=== PATIENT | male | born 1985 | race Caucasian/White ===

== ENCOUNTER → 2018-08-26 | Outpatient (CLI) | payer SELFPAY ==
[2018-08-26 16:57] LABS: Hemoglobin A1C 4.7 % (4.0-6.0)
[2018-08-26 17:58] LABS: LDL Cholesterol,Calculated 93.2 mg/dL (0.0-131.0); Lithium 0.3 mmol/L (1.0-1.2); VLDL Calculation 30.8 mg/dL (5.00-40.00)
== END | disposition home or self-care (01) ==
LOC: LABWHC1 10:32
PROVIDERS: ATTEND Psychiatry & Neurology Psychiatry
DX: Z51.81 Encounter for therapeutic drug level monitoring (principal); Z79.899 Other long term (current) drug therapy
CPT/HCPCS: 36415; 80061; 80178; 82565; 82947; 83036; 84439; 84443; 84520

== ENCOUNTER → 2018-09-27 | Outpatient (CLI) | payer OTHER | END | disposition home or self-care (01) | LOC: LABWHC1 10:52 | PROVIDERS: ATTEND Psychiatry & Neurology Psychiatry | DX: Z51.81 Encounter for therapeutic drug level monitoring (principal); Z79.899 Other long term (current) drug therapy | CPT/HCPCS: 36415; 80178 ==

== ENCOUNTER 2018-11-15 12:46 | Emergency (ER) | payer OTHER ==
[2018-11-15 13:43] VITALS: BP 105/73; PULSE 78; RESP 18; TEMP 98.7
[2018-11-15] MEDS ORDERED: KETOROLAC 60 MG/2 ML VIAL IM STA (14:23)
--- NOTE | 2018-11-15 14:25 | ED ---
Fall HPI - General Chief Complaint: Fall Stated Complaint: fall/8 stairs-2 days ago Time Seen by Provider: 11/15/18 14:16 Source: patient Mode of arrival: ambulatory - History of Present Illness Initial Comments: Patient is a 32-year-old male presenting to the emergency department complaining of back pain after falling off some stairs 2 days ago. Patient states he was trying to carry out a mattress up the stairs from a basement when he fell off the side landing onto his back. Patient states he fell onto cement alyssa and some poles that were on the ground as well. Patient states he's been trying to take Motrin for the pain but today it just got worse. He describes the pain mostly in the thoracic area. Patient denies shortness of breath or difficulty breathing. Patient also denies hitting his head and LOC. Patient has no other complaints at this time. - Related Data Previous Rx's Medication Instructions Recorded ARIPiprazole [Abilify] 15 mg PO DAILY 30 Days tab 04/04/14 Albuterol Inhaler [Ventolin Hfa 2 puff INHALATION RT-QID PRN 14 04/04/14 Inhaler] Days puff hydrOXYzine PAMOATE [Vistaril] 50 mg PO TID 30 Days cap 04/04/14 traZODone HCL [Desyrel] 100 mg PO HS 30 Days tab 04/04/14 Allergies Allergy/AdvReac Type Severity Reaction Status Date / Time Penicillins Allergy Intermediate Rash/Hives Verified 11/15/18 13:43 quetiapine fumarate AdvReac Severe Unknown Verified 11/15/18 13:43 [From Seroquel] [place] And Derivatives AdvReac Intermediate Rash/Hives Verified 11/15/18 13:43 strawberry [[place]] AdvReac Intermediate Rash/Hives Verified 11/15/18 13:43 Review of Systems ROS Statement: Those systems with pertinent positive or pertinent negative responses have been documented in the HPI. ROS Other: All systems not noted in ROS Statement are negative. Past Medical History Past Medical History: Asthma, GERD/Reflux Additional Past Medical History / Comment(s): Pt. currently has Dermatitis/rash from allergic reaction to a generic Tide pod laundry soap. History of Any Multi-Drug Resistant Organisms: None Reported Past Surgical History: No Surgical Hx Reported Past Anesthesia/Blood Transfusion Reactions: No Reported Reaction Past Psychological History: Anxiety, Bipolar Smoking Status: Current every day smoker Past Alcohol Use History: None Reported, Occasional Past Drug Use History: None Reported - Past Family History Mother Family Medical History: Diabetes Mellitus, Musculoskeletal Disorder, Renal Disease Additional Family Medical History / Comment(s): Stage III Renal Failure and Arthritis and Peripheral Neuropathy. Sister(s) Family Medical History: Seizure Disorder Additional Family Medical History / Comment(s): [facility]I and now has Seizure D.O. General Exam - General Exam Comments Initial Comments: GENERAL: Well-appearing, well-nourished and in no acute distress. HEAD: Atraumatic, normocephalic. EYES: Pupils equal round and reactive to light, extraocular movements intact, sclera anicteric, conjunctiva are normal. ENT: TMs normal, nares patent, oropharynx clear without exudates. Moist mucous membranes. NECK: Normal range of motion, supple without lymphadenopathy or JVD. LUNGS: Breath sounds clear to auscultation bilaterally and equal. No wheezes rales or rhonchi. HEART: Regular rate and rhythm without murmurs, rubs or gallops. ABDOMEN: Soft, nontender, normoactive bowel sounds. No guarding, no rebound. No masses appreciated. : Deferred EXTREMITIES: Pain with palpation of the lower thoracic spine and paraspinals. Bruising and abrasions along the thoracic area and lumbar area. NEUROLOGICAL: Cranial nerves II through XII grossly intact. Normal speech, normal gait. PSYCH: Normal mood, normal affect. SKIN: Warm, Dry, normal turgor, no rashes or lesions noted. Limitations: no limitations Course Vital Signs 11/15/18 13:39 Temperature 98.7 F Pulse Rate 78 Respiratory 18 Rate Blood Pressure 105/73 O2 Sat by Pulse 97 Oximetry Medical Decision Making - Medical Decision Making Patient is a 32-year-old male complaining of thoracic back pain after falling onto his back 2 days ago. Patient denies any other trauma. X-rays of the thoracic area and ribs were taken, no acute fractures are seen. Patient will be discharged home. Disposition Clinical Impression: Thoracic back pain Disposition: HOME SELF-CARE Condition: Stable Instructions (If sedation given, give patient instructions): Back Pain (ED) Additional Instructions: Please return to the Emergency Department if symptoms worsen or any other concerns. Is patient prescribed a controlled substance at d/c from ED?: No Referrals: [facility] [Primary Care Provider] - 1-2 days
--- NOTE | 2018-11-15 14:57 | XR ---
EXAMINATION TYPE: Bilateral rib series, 8 views DATE OF EXAM: 11/15/2018 COMPARISON: 03/28/2008 HISTORY: 32-year-old male with pain FINDINGS: No pleural effusion or pneumothorax seen on either side. No displaced rib fracture seen on either martha e. IMPRESSION: No displaced rib fractures seen on either side.
--- NOTE | 2018-11-15 14:58 | XR ---
EXAMINATION TYPE: XR thoracic spine complete DATE OF EXAM: 11/15/2018 Comparison: None Clinical History: 32-year-old male with Pain Findings: 12 rib bearing thoracic vertebral bodies. All pedicles are visualized. Vertebral body heights are jad ntained and alignment is preserved. Impression: No vertebral compression collapse or malalignment.
== END 2018-11-15 15:17 | disposition home or self-care (01) ==
LOC: EC 12:46
DX: S20.222A Contusion of left back wall of thorax, initial encounter (principal); S20.221A Contusion of right back wall of thorax, initial encounter; S30.0XXA Contusion of lower back and pelvis, initial encounter; J45.909 Unspecified asthma, uncomplicated; F17.200 Nicotine dependence, unspecified, uncomplicated; Z88.0 Allergy status to penicillin; Z88.8 Allergy status to other drugs, medicaments and biological substances; Z91.018 Allergy to other foods; W10.9XXA Fall (on) (from) unspecified stairs and steps, initial encounter; Y93.89 Activity, other specified
CPT/HCPCS: 71110; 72072; 99283; 96372; J1885

== ENCOUNTER → 2019-11-23 | Day surgery (SDC) | payer OTHER ==
[2019-11-21 18:27] VITALS: BMI 24.3
[~2019-11-23] MED LIST: ACETAMINOPHEN TAB 500 MG TAB PO ONE; BUPIVACAIN-EPI 0.25%-1:200,000 30 ML VIAL SQ ONE; DEXAMETHASONE SOD PHOSPHATE 10 MG/ML 1 ML VIAL IV ONE; GLYCOPYRROLATE 0.2 MG/ML 2 ML VIAL ONE; HEPARIN SODIUM,PORCINE 5,000 UNIT/ML 1 ML VIAL SQ ONE; HYDROmorphone (PF) 1 MG/ML ONE; KETOROLAC 30 MG/ML 1 ML VIAL IVP ONE; LACTATED RINGERS 1,000 ML IV ONE; LACTATED RINGERS 1,000 ML IV SCH; LIDOCAINE 1% (10MG/ML) FOR IV START INTRADERMA ONE; LIDOCAINE 1% INJ 10MG/ML (20 ML MDV) ONE; MIDAZOLAM 2 MG/2 ML VIAL ONE; NEOSTIGMINE 1 MG/ML 10 ML VIAL ONE; ONDANSETRON 4 MG/2 ML VIAL IVP ONE; PROPOFOL 10 MG/ML 20 ML VIAL IV ONE; ROCURONIUM BROMIDE 10 MG/ML 5 ML VIAL IV ONE; SCOPOLAMINE 1.5MG/72HR PATCH TRANSDERM ONE; SUCCINYLCHOLINE CHLORIDE 100 MG/5 ML SYR IV ONE; fentaNYL (PF) 50 MCG/ML 2 ML AMP IV PRN; fentaNYL (PF) 50 MCG/ML 2 ML AMP ONE
[2019-11-23 09:02] VITALS: TEMP 96.8
--- NOTE | 2019-11-23 09:42 | P.GSHP ---
History of Present Illness H&P Date: 11/23/19 Chief Complaint: Right upper quadrant pain Is a 33-year-old male who presents today for laparoscopically cholecystectomy. Patient's had complaints of right quadrant pain. He is worked up found have evidence of cholecystitis. Past Medical History Past Medical History: Asthma, GERD/Reflux Additional Past Medical History / Comment(s): Pt. currently has Dermatitis/rash from allergic reaction to a generic Tide pod laundry soap. History of Any Multi-Drug Resistant Organisms: None Reported Past Surgical History: No Surgical Hx Reported Past Anesthesia/Blood Transfusion Reactions: No Reported Reaction Smoking Status: Current every day smoker - Past Family History Mother Family Medical History: Diabetes Mellitus, Musculoskeletal Disorder, Renal Disease Additional Family Medical History / Comment(s): Stage III Renal Failure and Arthritis and Peripheral Neuropathy. Sister(s) Family Medical History: Seizure Disorder Additional Family Medical History / Comment(s): [facility]I and now has Seizure D.O. Medications and Allergies Home Medications Medication Instructions Recorded Confirmed Type Albuterol Inhaler (Mhu) [Ventolin 2 puff INHALATION RT-QID PRN 14 04/04/14 11/23/19 Rx Hfa Inhaler (Mhu)] Days puff traZODone HCL [Desyrel] 100 mg PO HS 30 Days tab 04/04/14 11/23/19 Rx Omeprazole [PriLOSEC] 20 mg PO AC-BRKFST 11/21/19 11/23/19 History rOPINIRole HCL [Requip] 0.25 mg PO HS 11/21/19 11/23/19 History traMADol HCL [Ultram] 50 mg PO Q6HR PRN 11/21/19 11/23/19 History Allergies Allergy/AdvReac Type Severity Reaction Status Date / Time Penicillins Allergy Intermediate Rash/Hives Verified 11/23/19 08:59 quetiapine fumarate AdvReac Severe Unknown Verified 11/23/19 08:59 [From Seroquel] [place] And Derivatives AdvReac Intermediate Rash/Hives Verified 11/23/19 08:59 strawberry [[place]] AdvReac Intermediate Rash/Hives Verified 11/23/19 08:59 Surgical - Exam Vital Signs Temp Pulse Resp BP Pulse Ox 96.8 F L 66 17 115/68 97 11/23/19 09:01 11/23/19 09:01 11/23/19 09:01 11/23/19 09:01 11/23/19 09:01 - General well developed, well nourished, no distress - Eyes PERRL, normal ocular movement - ENT normal pinna - Neck no masses - Respiratory normal expansion - Cardiovascular Rhythm: regular - Abdomen Abdomen: soft, non tender Assessment and Plan Assessment: Chronic cholecystitis. We'll perform laparoscopic cholecystectomy
--- NOTE | 2019-11-23 11:01 | P.OP ---
Date of Procedure: 11/23/19 Preoperative Diagnosis: Cholecystitis Postoperative Diagnosis: Cholecystitis Procedure(s) Performed: Laparoscopic cholecystectomy Anesthesia: SAQIB Surgeon: Alber Bearden Estimated Blood Loss (ml): 5 Pathology: other (Gallbladder) Condition: stable Disposition: PACU Description of Procedure: The patient was placed on the operating table. The patient received a general endotracheal tube anesthesia. The patients abdomen was prepped and draped in the usual sterile fashion. Through an infraumbilical stab incision, the fascia of the anterior abdominal wall was grasped with a pair of Kochers and then the Veress needle was placed in the peritoneal cavity. Position of the Veress needle was confirmed with positive drop test. The abdomen was then insufflated. After adequate insufflation, the 10 mm trocar was placed in the peritoneal cavity. Following this the laparoscope was placed in the peritoneal cavity. The patient was placed in the head-up, right side up position and then a 5 mm trocar was placed in the right lateral and right subcostal position under direct visualization. A 8 mm trocar was placed in the epigastric position. The gallbladder was grasped in the fundus and infundibulum. Traction on the gallbladder was placed in the lateral and the cephalad positions. The triangle of Calot was visualized.. The cystic duct was bluntly dissected until the union of the cystic duct and common bile duct was seen. A critical view of safety was achieved. The cystic duct was then divided and sealed with the Harmonic scissors. A PDS Endoloop was then placed throughout the cystic duct stump. The cystic artery divided and sealed with the Harmonic scissors. The gallbladder was then removed from the liver bed using Harmonic scissors. The gallbladder was then extracted through the epigastric port site. Operative field was checked for any bleeding spots and Harmonic scissors was used to coagulate the liver bed. The abdomen was irrigated. The trocars were removed. The skin was closed using interrupted 3-0 Vicryl suture. Dermabond dressing were applied. The patient tolerated the procedure well.
[2019-11-23 11:06] VITALS: RESP 18
[2019-11-23] MEDS: HYDROmorphone 0.5 MG/0.5 ML SYRINGE IVP PRN ×2 (11:07→11:13)
[2019-11-23 12:44] VITALS: BP 123/79; PULSE 68
== END ==
LOC: OR 08:44
PROVIDERS: ATTEND Surgery
DX: K81.1 Chronic cholecystitis (principal); J45.909 Unspecified asthma, uncomplicated; F17.210 Nicotine dependence, cigarettes, uncomplicated; K21.9 Gastro-esophageal reflux disease without esophagitis; F41.9 Anxiety disorder, unspecified; F32.9 Major depressive disorder, single episode, unspecified; Z88.0 Allergy status to penicillin; Z88.8 Allergy status to other drugs, medicaments and biological substances; Z91.018 Allergy to other foods; Z79.899 Other long term (current) drug therapy; Z83.3 Family history of diabetes mellitus; Z82.61 Family history of arthritis; Z84.1 Family history of disorders of kidney and ureter; Z82.0 Family history of epilepsy and other diseases of the nervous system
CPT/HCPCS: 88304; 47562; J2250; J1644; J1100; J2710; J0690; J2405; J2001; J3010; J1885; J1170 ×2; J0330; J2704

== ENCOUNTER 2019-12-25 03:34 | Emergency (ER) | payer OTHER ==
[2019-12-25 03:42] VITALS: TEMP 98
--- NOTE | 2019-12-25 03:42 | ED ---
General Adult HPI <Lamont Steinre - Last Filed: 12/25/19 06:33> <SdJonn - Last Filed: 12/25/19 12:25> - General Stated complaint: ETOH Time Seen by Provider: 12/25/19 03:36 - History of Present Illness Initial comments: Dictation was produced using [employer] dictation software. please excuse any grammatical, word or spelling errors. This patient was cared for during a federal and state declared state of emergency secondary to Covid 19 Chief Complaint: 34-year-old male with past medical history of bipolar disease presents with agitation History of Present Illness: 34-year-old male he is has past medical history bipolar disease. Patient use of a psychiatrist however he weaned himself off his psychiatric medications. Patient was drinking heavily this evening. He was having his 15 year anniversary with his . Patient states that he got into a confrontation with his . He was accused of having people over when he really didn't. He suicidal homicidal ideation. Patient states he is here because he just wants to talk to somebody. Denies any visual auditory hallucinations. Patient has no medical complaints. The ROS documented in this emergency department record has been reviewed and c onfirmed by me. Those systems with pertinent positive or negative responses have been documented in the HPI. All other systems are other negative and/or noncontributory. PHYSICAL EXAM: General Impression: Alert and oriented x3, not in acute distress, inebriated HEENT: Normocephalic atraumatic, extra-ocular movements intact, pupils equal and reactive to light bilaterally, mucous membranes moist. Cardiovascular: Heart regular rate and rhythm Chest: Able to complete full sentences, no retractions, no tachypnea Abdomen: abdomen soft, non-tender, non-distended, no organomegaly Musculoskeletal: Pulses present and equal in all extremities, no peripheral edema Motor: no focal deficits noted Neurological: CN II-XII grossly intact, no focal motor or sensory deficits noted Skin: Intact with no visualized rashes Psych: Normal affect and mood ED course: 34 y Old male presents with alcohol intoxication and defecation with his significant other. Vital signs upon arrival are within acceptable limits. positive breath alcohol test. Patient pending clinical sobriety for EPS evaluation. Patient care signed out to oncoming physician for follow-up of EPS recommendations. (Lamont Steiner) - Related Data Home Medications Medication Instructions Recorded Confirmed Omeprazole [PriLOSEC] 20 mg PO AC-BRKFST 11/21/19 12/25/19 rOPINIRole HCL [Requip] 0.25 mg PO HS 11/21/19 12/25/19 Albuterol Sulfate [Ventolin HFA] 1 - 2 puff INHALATION RT-QID PRN 12/25/19 12/25/19 Previous Rx's Medication Instructions Recorded traZODone HCL [Desyrel] 100 mg PO HS 30 Days tab 04/04/14 Allergies Allergy/AdvReac Type Severity Reaction Status Date / Time [place] And Derivatives Allergy Intermediate Rash/Hives Verified 12/25/19 09:49 Penicillins Allergy Intermediate Rash/Hives Verified 12/25/19 09:49 strawberry [[place]] Allergy Intermediate Rash/Hives Verified 12/25/19 09:49 quetiapine fumarate AdvReac Severe Paralysis, Verified 12/25/19 09:49 [From Seroquel] unable to move. Review of Systems ROS Other: All systems not noted in ROS Statement are negative. <Lamont Steiner - Last Filed: 12/25/19 06:33> ROS Other: All systems not noted in ROS Statement are negative. <Jonn Beaver - Last Filed: 12/25/19 12:25> ROS Statement: Those systems with pertinent positive or pertinent negative responses have been documented in the HPI. Past Medical History Past Medical History: Asthma, GERD/Reflux Additional Past Medical History / Comment(s): Pt. currently has Dermatitis/rash from allergic reaction to a generic Tide pod laundry soap. History of Any Multi-Drug Resistant Organisms: None Reported Past Surgical History: No Surgical Hx Reported Past Anesthesia/Blood Transfusion Reactions: No Reported Reaction Past Psychological History: Anxiety, Bipolar Past Alcohol Use History: None Reported Additional Past Alcohol Use History / Comment(s): Smoking since age 16, 1/2 ppd Past Drug Use History: None Reported - Past Family History Mother Family Medical History: Diabetes Mellitus, Musculoskeletal Disorder, Renal Di sease Additional Family Medical History / Comment(s): Stage III Renal Failure and Arthritis and Peripheral Neuropathy. Sister(s) Family Medical History: Seizure Disorder Additional Family Medical History / Comment(s): [facility]I and now has Seizure D.O. <Lamont Steiner - Last Filed: 12/25/19 06:33> Course <Jonn Beaver - Last Filed: 12/25/19 12:25> Vital Signs 12/25/19 03:36 Temperature 98 F Pulse Rate 89 Respiratory 20 Rate Blood Pressure 126/91 O2 Sat by Pulse 96 Oximetry - Reevaluation(s) Reevaluation #1: 12/25/19 12:24 The patient was endorsed me pending psychiatric evaluation after sobriety obtained. It was evaluated he currently is not suicidal or homicidal he will be discharged only care plan. He is in agreement with this. (Jonn Beaver) Disposition <Lamont Steiner - Last Filed: 12/25/19 06:33> Is patient prescribed a controlled substance at d/c from ED?: No <Jonn Beaver - Last Filed: 12/25/19 12:25> Clinical Impression: Alcohol intoxication, Adjustment disorder Disposition: HOME SELF-CARE Condition: Good Instructions (If sedation given, give patient instructions): Alcohol Intoxication (ED), Mood Disorders (ED) Referrals: Rodney Lara MD [Primary Care Provider] - 1-2 days
[2019-12-25 15:00] VITALS: BP 126/92; PULSE 88; RESP 18
== END 2019-12-25 13:06 | disposition home or self-care (01) ==
LOC: EC 03:34
DX: F10.129 Alcohol abuse with intoxication, unspecified (principal); F43.20 Adjustment disorder, unspecified; F31.9 Bipolar disorder, unspecified; J45.909 Unspecified asthma, uncomplicated; K21.9 Gastro-esophageal reflux disease without esophagitis; Z91.048 Other nonmedicinal substance allergy status; Z79.51 Long term (current) use of inhaled steroids; Z79.899 Other long term (current) drug therapy; Z88.0 Allergy status to penicillin; Z91.018 Allergy to other foods; Z88.8 Allergy status to other drugs, medicaments and biological substances
CPT/HCPCS: 82075; 99285

== ENCOUNTER 2020-02-29 04:07 | Emergency (ER) | payer OTHER ==
[2020-02-29 04:39] LABS: Amphetamine Screen,Urine Not Detected (NotDetected); Barbiturate Screen,Urine Not Detected (NotDetected); Benzodiazepines Screen,Urine Not Detected (NotDetected); Cocaine Screen,Urine Not Detected (NotDetected); Methadone Screen, Urine Not Detected (NotDetected); Opiate Screen,Urine Not Detected (NotDetected); Oxycodone Screen, Urine Not Detected (NotDetected); Phencyclidine Screen,Urine Not Detected (NotDetected); Tricyclic Antidepressant,Urine Not Detected (NotDetected); Urn Cannabinoid Scrn Not Detected (NotDetected)
--- NOTE | 2020-02-29 05:30 | ED ---
Psych HPI - General Source: patient Mode of arrival: ambulatory - History of Present Illness MD Complaint: suicidal ideation, feels depressed -: days(s) Associated Psychiatric Symptoms: depression History of same: Yes Quality: changing over time Improves With: none Worsens With: none Context: significant life stressor Associated Symptoms: denies other symptoms <Cam Parkinson - Last Filed: 02/29/20 05:27> <Pavan Dunaway - Last Filed: 02/29/20 10:15> - General Chief Complaint: Psychiatric Symptoms Stated Complaint: Mental Health Time Seen by Provider: 02/29/20 04:22 - History of Present Illness Initial Comments: This patient is 34-year-old man with history of previous psychiatric treatment f or depression who presents with complaint that his mood has been increasingly depressed over the past week or so. 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 In addition, the patient had 2 friends who of overdose at his wedding on his mood. Patient was previously treated by [facility] but has not been seen in quite some time. (Cam Parkinson) - Related Data Home Medications Medication Instructions Recorded Confirmed Omeprazole [PriLOSEC] 20 mg PO AC-BRKFST 11/21/19 02/29/20 rOPINIRole HCL [Requip] 0.25 mg PO 11/21/19 02/29/20 Albuterol Sulfate [Ventolin HFA] 1 - 2 puff INHALATION RT-QID PRN 12/25/19 02/29/20 traZODone HCL [Desyrel] 100 mg PO 02/29/20 02/29/20 Allergies Allergy/AdvReac Type Severity Reaction Status Date / Time [place] And Derivatives Allergy Intermediate Rash/Hives Verified 02/29/20 06:55 Penicillins Allergy Intermediate Rash/Hives Verified 02/29/20 06:55 strawberry [[place]] Allergy Intermediate Rash/Hives Verified 02/29/20 06:55 quetiapine fumarate AdvReac Severe Paralysis, Verified 02/29/20 06:55 [From Seroquel] unable to move. Review of Systems ROS Other: All systems not noted in ROS Statement are negative. Constitutional: Denies: fever, chills Respiratory: Denies: cough, dyspnea Cardiovascular: Denies: chest pain, palpitations Gastrointestinal: Denies: abdominal pain, vomiting, diarrhea Genitourinary: Denies: dysuria, hematuria Musculoskeletal: Denies: back pain Skin: Denies: rash Neurological: Denies: headache Psychiatric: Reports: depression, suicidal thoughts. Denies: auditory hallucinations, visual hallucinations, homicidal thoughts <Cam Parkinson - Last Filed: 02/29/20 05:27> ROS Other: All systems not noted in ROS Statement are negative. <Pavan Dunaway - Last Filed: 02/29/20 10:15> ROS Statement: Those systems with pertinent positive or pertinent negative responses have been documented in the HPI. Past Medical History Past Medical History: Asthma, GERD/Reflux Additional Past Medical History / Comment(s): Pt. currently has Dermatitis/rash from allergic reaction to a generic Tide pod laundry soap. History of Any Multi-Drug Resistant Organisms: None Reported Past Surgical History: No Surgical Hx Reported Past Anesthesia/Blood Transfusion Reactions: No Reported Reaction Past Psychological History: Anxiety, Bipolar Smoking Status: Current every day smoker Past Alcohol Use History: None Reported Past Drug Use History: None Reported - Past Family History Mother Family Medical History: Diabetes Mellitus, Musculoskeletal Disorder, Renal Disease Additional Family Medical History / Comment(s): Stage III Renal Failure and Arthritis and Peripheral Neuropathy. Sister(s) Family Medical History: Seizure Disorder Additional Family Medical History / Comment(s): CHI and now has Seizure D.O. <Cam Parkinson - Last Filed: 02/29/20 05:27> General Exam Limitations: no limitations General appearance: alert, in no apparent distress Head exam: Present: atraumatic, normocephalic Eye exam: Present: normal appearance. Absent: scleral icterus, conjunctival injection Respiratory exam: Present: normal lung sounds bilaterally. Absent: respiratory distress, wheezes, rales, rhonchi, stridor Cardiovascular Exam: Present: regular rate, normal rhythm, normal heart sounds. Absent: systolic murmur, diastolic murmur, rubs, gallop GI/Abdominal exam: Present: soft. Absent: distended, tenderness, guarding, rebound, rigid Neurological exam: Present: alert Psychiatric exam: Present: normal mood, suicidal ideation. Absent: agitated, anxious, flat affect, manic, homicidal ideation Skin exam: Present: warm, dry, intact, normal color. Absent: rash <Cam Parkinson - Last Filed: 02/29/20 05:27> Course Vital Signs 02/29/20 02/29/20 04:15 08:00 Temperature 98 F Pulse Rate 85 Respiratory 18 18 Rate Blood Pressure 113/79 O2 Sat by Pulse 98 Oximetry Medical Decision Making <Gilberto Dunawayophe - Last Filed: 02/29/20 10:15> - Medical Decision Making Mobile crisis unit came spoke with the patient and determined that the patient could be followed up as an outpatient. Patient agreed to safety plan and the safety plan was given to the patient prior to discharge. (Pavan Dunaway) - Lab Data Lab Results 02/29/20 Range/Units 04:22 Urine Opiates Screen Not Detected (NotDetected) Ur Oxycodone Screen Not Detected (NotDetected) Urine Methadone Screen Not Detected (NotDetected) Ur Propoxyphene Screen Not Detected (NotDetected) Ur Barbiturates Screen Not Detected (NotDetected) U Tricyclic Antidepress Not Detected (NotDetected) Ur Phencyclidine Scrn Not Detected (NotDetected) Ur Amphetamines Screen Not Detected (NotDetected) U Methamphetamines Scrn Not Detected (NotDetected) U Benzodiazepines Scrn Not Detected (NotDetected) Urine Cocaine Screen Not Detected (NotDetected) U Marijuana (THC) Screen Not Detected (NotDetected) Disposition <Cam Parkinson - Last Filed: 02/29/20 05:27> Is patient prescribed a controlled substance at d/c from ED?: No Time of Disposition: 10:15 <Pavan Dunaway - Last Filed: 02/29/20 10:15> Clinical Impression: Depression Disposition: HOME SELF-CARE Condition: Good Instructions (If sedation given, give patient instructions): Depression (ED) Referrals: Rodney Lara MD [Primary Care Provider] - 1-2 days
[2020-02-29 10:57] VITALS: BP 116/74; PULSE 88; RESP 20; TEMP 97.9
== END 2020-02-29 10:53 | disposition home or self-care (01) ==
LOC: EC 04:07
DX: F32.9 Major depressive disorder, single episode, unspecified (principal); F41.9 Anxiety disorder, unspecified; J45.909 Unspecified asthma, uncomplicated; K21.9 Gastro-esophageal reflux disease without esophagitis; F17.200 Nicotine dependence, unspecified, uncomplicated; Z79.899 Other long term (current) drug therapy; Z91.09 Other allergy status, other than to drugs and biological substances; Z88.0 Allergy status to penicillin; Z91.018 Allergy to other foods; Z88.8 Allergy status to other drugs, medicaments and biological substances
CPT/HCPCS: 80306; 82075; 99284

== ENCOUNTER 2020-10-19 04:41 | Emergency (ER) | payer OTHER ==
[2020-10-19] MEDS ORDERED: KETOROLAC 15 MG/ML 1 ML VIAL IVP STA (05:17)
--- NOTE | 2020-10-19 05:53 | ED ---
Extremity Problem HPI - General Chief complaint: Extremity Problem,Nontraumatic Stated complaint: Poss DVT Time Seen by Provider: 10/19/20 05:06 Source: patient, EMS Mode of arrival: EMS Limitations: no limitations - History of Present Illness Initial comments: is 34-year-old man who presents with right knee pain that started around 2 AM. Patient has Flexeril at home they tried taking and states that when that did not relieve things she felt he should be evaluated here. Patient states that he also felt like his leg was a little tingly and therefore was concerned about possibility of DVT. He does not have history of DVT but his mother does. There was no trauma. MD Complaint: joint pain -: hour(s) Location: right, knee History of Same: Yes Radiation: none Quality: aching Consistency: constant Improves with: immobilization Worsens with: weight bearing, other (Flexion) Associated Symptoms: denies other symptoms - Related Data Home Medications Medication Instructions Recorded Confirmed Omeprazole [PriLOSEC] 20 mg PO AC-BRKFST 11/21/19 02/29/20 rOPINIRole HCL [Requip] 0.25 mg PO HS 11/21/19 02/29/20 Albuterol Sulfate [Ventolin HFA] 1 - 2 puff INHALATION RT-QID PRN 12/25/19 02/29/20 traZODone HCL [Desyrel] 100 mg PO HS 02/29/20 02/29/20 Allergies Allergy/AdvReac Type Severity Reaction Status Date / Time [place] And Derivatives Allergy Intermediate Rash/Hives Verified 10/19/20 05:08 Penicillins Allergy Intermediate Rash/Hives Verified 10/19/20 05:08 strawberry [[place]] Allergy Intermediate Rash/Hives Verified 10/19/20 05:08 quetiapine fumarate AdvReac Severe Paralysis, Verified 10/19/20 05:08 [From Seroquel] unable to move. Review of Systems ROS Statement: Those systems with pertinent positive or pertinent negative responses have been documented in the HPI. ROS Other: All systems not noted in ROS Statement are negative. Constitutional: Denies: fever, chills Respiratory: Denies: cough, dyspnea Cardiovascular: Denies: chest pain, palpitations, edema Gastrointestinal: Denies: abdominal pain Musculoskeletal: Reports: arthralgia Skin: Denies: rash Neurological: Denies: headache, weakness, numbness, paresthesias Past Medical History Past Medical History: Asthma, GERD/Reflux Additional Past Medical History / Comment(s): Pt. currently has Dermatitis/rash from allergic reaction to a generic Tide pod laundry soap. History of Any Multi-Drug Resistant Organisms: None Reported Past Surgical History: No Surgical Hx Reported Past Anesthesia/Blood Transfusion Reactions: No Reported Reaction Past Psychological History: Anxiety, Bipolar Smoking Status: Current every day smoker Past Alcohol Use History: Abuse, Daily Past Drug Use History: None Reported - Past Family History Mother Family Medical History: Diabetes Mellitus, Musculoskeletal Disorder, Renal Disease Additional Family Medical History / Comment(s): Stage III Renal Failure and Arthritis and Peripheral Neuropathy. Sister(s) Family Medical History: Seizure Disorder Additional Family Medical History / Comment(s): CHI and now has Seizure D.O. General Exam Limitations: no limitations General appearance: alert, in no apparent distress Cardiovascular Exam: Present: other (Dorsalis pedis pulses metric and normal in strength. Normal capillary refill.) Right Upper Leg exam: Present: normal inspection, full ROM. Absent: tenderness, swelling Knee exam: Present: full knee extension. Absent: full ROM (There is full extension. Patient will flex to approximately 30 before stopping due to pain), tenderness, swelling, abrasion, laceration, ecchymosis, deformity, crepitus, dislocation, posterior draw sign Lower Leg exam: Present: normal inspection, full ROM. Absent: tenderness, swelling Ankle exam: Present: normal inspection, full ROM. Absent: tenderness, swelling Foot/Toe exam: Present: normal inspection, full ROM. Absent: tenderness, swelling, abrasion, laceration, ecchymosis, deformity, crepitus, dislocation Neurovascular tendon exam: Present: no vascular compromise. Absent: abnormal cap refill, motor deficit, sensory deficit, tendon deficit, extremity cold to touch Neurological exam: Present: alert. Absent: motor sensory deficit Skin exam: Present: warm, dry, intact, normal color. Absent: rash Course Vital Signs 10/19/20 04:45 Temperature 97.8 F Pulse Rate 89 Respiratory 19 Rate Blood Pressure 132/89 O2 Sat by Pulse 96 Oximetry Medical Decision Making - Lab Data Lab Results 10/19/20 Range/Units 05:31 D-Dimer <0.17 (<0.60) mg/L FEU Disposition Clinical Impression: Knee pain, right Disposition: HOME SELF-CARE Condition: Good Instructions (If sedation given, give patient instructions): Knee Pain (ED) Is patient prescribed a controlled substance at d/c from ED?: No Referrals: Rodney Lara MD [Primary Care Provider] - 1-2 days
--- NOTE | 2020-10-19 06:16 | XR ---
EXAM: XR Right Knee, 1 or 2 Views CLINICAL HISTORY: ITS.REASON XR Reason: pain TECHNIQUE: Frontal and/or lateral views of the right knee. COMPARISON: No relevant prior studies available. FINDINGS: Bones/joints: Unremarkable. No acute fracture. No dislocation. Soft tissues: Unremarkable. IMPRESSION: No acute osseous traumatic injury or abnormal alignment involving the right knee. No significant degenerative changes.
[2020-10-19 07:25] VITALS: BP 98/83; PULSE 84; RESP 16; TEMP 98.4
== END 2020-10-19 07:25 | disposition home or self-care (01) ==
LOC: EC 04:41
DX: M25.561 Pain in right knee (principal); J45.909 Unspecified asthma, uncomplicated; K21.9 Gastro-esophageal reflux disease without esophagitis; F41.9 Anxiety disorder, unspecified; F31.9 Bipolar disorder, unspecified; F17.200 Nicotine dependence, unspecified, uncomplicated; Z79.51 Long term (current) use of inhaled steroids; Z79.899 Other long term (current) drug therapy; Z88.0 Allergy status to penicillin
CPT/HCPCS: 36415; 85379; 73562; 99284; 96374; J1885

== ENCOUNTER 2022-02-04 04:38 | Emergency (ER) | payer OTHER ==
[2022-02-04] MEDS ORDERED: DIPH,PERTUS(ACELL)TETVAC-LF 0.5 ML VIAL IM ONE (04:43)
[2022-02-04] MEDS ORDERED: TRANEXAMIC ACID IN NACL,ISO-OS 1,000 MG in SALINE 1 100ML.BAG IV STA (04:43)
[2022-02-04] MEDS ORDERED: ONDANSETRON 4 MG/2 ML VIAL IVP STA (04:43)
[2022-02-04] MEDS ORDERED: HYDROmorphone 1 MG/ML 1 ML SYRINGE IVP STA (04:43)
[2022-02-04] MEDS ORDERED: SODIUM CHLORIDE 0.9% 1,000 ML IV STA (04:43)
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
[2022-02-04 05:01] VITALS: RESP 18
[2022-02-04 05:11] LABS: Basophils # (A) 0.1 k/uL (0-0.2); Basophils % (A) 1 %; Eosinophils # (A) 0.2 k/uL (0-0.7); Eosinophils % (A) 3 %; HCT 50.3 % (39.0-53.0); HGB 16.8 gm/dL (13.0-17.5); Lymphocytes # (A) 3.3 k/uL (1.0-4.8); Lymphocytes % (A) 42 %; MCH 31.5 pg (25.0-35.0); MCHC 33.4 g/dL (31.0-37.0); MCV 94.1 fL (80.0-100.0); Mean Platelet Volume 7.9; Monocytes # (A) 0.4 k/uL (0-1.0); Monocytes % (A) 5 %; Neutrophils # (A) 3.7 k/uL (1.3-7.7); Neutrophils % (A) 47 %; Platelet Count 252 k/uL (150-450); RBC 5.35 m/uL (4.30-5.90); RDW 12.7 % (11.5-15.5); WBC 7.8 k/uL (3.8-10.6)
[2022-02-04 05:23] LABS: INR 1.1 (<1.2); Partial Thromboplastin Time 22.7 sec (22.0-30.0); Prothrombin Time 11.9 sec (9.0-12.0)
[2022-02-04 05:28] LABS: ALT 28 U/L (4-49); AST 29 U/L (17-59); African American GFR (CKD) >90 (>60 ml/min/1.73 sqM); Albumin 4.3 g/dL (3.5-5.0); Alkaline Phosphatase 72 U/L (38-126); Anion Gap 16 mmol/L; Blood Urea Nitrogen 5 mg/dL (9-20); Calcium 8.7 mg/dL (8.4-10.2); Carbon Dioxide 19 mmol/L (22-30); Chloride 107 mmol/L (98-107); Glucose 130 mg/dL (74-99); Non-African American GFR(CKD) >90 (>60 ml/min/1.73 sqM); Potassium 3.7 mmol/L (3.5-5.1); Sodium 142 mmol/L (137-145); Total Bilirubin 0.6 mg/dL (0.2-1.3)
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
[2022-02-04 05:42] LABS: Alcohol 181 mg/dL
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
[2022-02-04 06:40] LABS: Basophils # (A) 0.1 k/uL (0-0.2); Basophils % (A) 0 %; Eosinophils # (A) 0.2 k/uL (0-0.7); Eosinophils % (A) 2 %; HCT 45.4 % (39.0-53.0); HGB 15.3 gm/dL (13.0-17.5); Lymphocytes # (A) 1.2 k/uL (1.0-4.8); Lymphocytes % (A) 11 %; MCH 32.1 pg (25.0-35.0); MCHC 33.8 g/dL (31.0-37.0); Mean Platelet Volume 7.8; Monocytes # (A) 0.3 k/uL (0-1.0); Monocytes % (A) 3 %; Neutrophils # (A) 8.8 k/uL (1.3-7.7); Neutrophils % (A) 83 %; Platelet Count 201 k/uL (150-450); RBC 4.78 m/uL (4.30-5.90); RDW 13.1 % (11.5-15.5); WBC 10.5 k/uL (3.8-10.6)
[2022-02-04 07:36] LABS: Phencyclidine Screen,Urine Not Detected (NotDetected); Urn Cannabinoid Scrn Not Detected (NotDetected)
[2022-02-04 07:37] LABS: Amphetamine Screen,Urine Not Detected (NotDetected); Barbiturate Screen,Urine Not Detected (NotDetected); Benzodiazepines Screen,Urine Not Detected (NotDetected); Cocaine Screen,Urine Not Detected (NotDetected); Methadone Screen, Urine Not Detected (NotDetected); Opiate Screen,Urine Detected (NotDetected); Oxycodone Screen, Urine Not Detected (NotDetected); Tricyclic Antidepressant,Urine Not Detected (NotDetected)
[2022-02-04 07:51] VITALS: BP 131/90; PULSE 78
[2022-02-04] MEDS ORDERED: fentaNYL (PF) 50 MCG/ML 2 ML AMP IVP PRN (07:52)
[2022-02-04] MEDS ORDERED: fentaNYL (PF) 50 MCG/ML 2 ML AMP IV STA (07:52)
[2022-02-04] MEDS ORDERED: NALOXONE 0.4 MG/ML 1 ML VIAL IV PRN (08:04)
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
== END 2022-02-04 09:35 | disposition other institution (70) ==
LOC: EC 04:38
DX: S36.039A Unspecified laceration of spleen, initial encounter (principal); S37.032A Laceration of left kidney, unspecified degree, initial encounter; S31.010A Laceration without foreign body of lower back and pelvis without penetration into retroperitoneum, initial encounter; S36.893A Laceration of other intra-abdominal organs, initial encounter; F10.229 Alcohol dependence with intoxication, unspecified; J45.909 Unspecified asthma, uncomplicated; F17.200 Nicotine dependence, unspecified, uncomplicated; Y90.6 Blood alcohol level of 120-199 mg/100 ml; Z88.0 Allergy status to penicillin; Z91.018 Allergy to other foods; Z88.8 Allergy status to other drugs, medicaments and biological substances; Z91.02 Food additives allergy status; Z23 Encounter for immunization; Y04.8XXA Assault by other bodily force, initial encounter
CPT/HCPCS: 36415; 93005; 86900; 86901; 80053; 83605; 84484; 85025; 85610; 85730; 86850; 80306; 72170; 71045; 71260; 74177; 90715; 99291; 96365; 96375; 96361; 96374; 90471; G0480; J2405; J0690; J3010; J1170; Q9967; 80320

== ENCOUNTER 2022-10-04 05:58 | Emergency (ER) | payer OTHER ==
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
[2022-10-04] MEDS ORDERED: LORazepam 1 MG TAB PO STA (06:44)
[2022-10-04 06:54] LABS: Amphetamine Screen,Urine Not Detected (NotDetected); Barbiturate Screen,Urine Not Detected (NotDetected); Benzodiazepines Screen,Urine Not Detected (NotDetected); Cocaine Screen,Urine Not Detected (NotDetected); Methadone Screen, Urine Not Detected (NotDetected); Opiate Screen,Urine Not Detected (NotDetected); Oxycodone Screen, Urine Not Detected (NotDetected); Phencyclidine Screen,Urine Not Detected (NotDetected); Tricyclic Antidepressant,Urine Not Detected (NotDetected); Urn Cannabinoid Scrn Not Detected (NotDetected)
[2022-10-04 15:41] VITALS: BP 133/79; PULSE 79; RESP 18; TEMP 98.2
== END 2022-10-04 15:41 | disposition home or self-care (01) ==
LOC: EC 05:58
DX: R45.851 Suicidal ideations (principal); F10.10 Alcohol abuse, uncomplicated; F43.10 Post-traumatic stress disorder, unspecified; F17.200 Nicotine dependence, unspecified, uncomplicated; Z88.0 Allergy status to penicillin; Z88.8 Allergy status to other drugs, medicaments and biological substances; Z86.59 Personal history of other mental and behavioral disorders; Z91.018 Allergy to other foods
CPT/HCPCS: 80306; 82075; 99284

== ENCOUNTER 2022-11-25 02:14 | Emergency (ER) | payer OTHER ==
[2022-11-25 02:40] LABS: Appearance,Urine Clear (Clear); Bilirubin,Urine Negative (Negative); Blood,Urine Negative (Negative); Color,Urine Colorless; Glucose,Urine (UA) Negative (Negative); Ketones,Urine Negative (Negative); Leukocyte Esterase,Urine Negative (Negative); Nitrite,Urine Negative (Negative); PH, Urine 5.5 (5.0-8.0); Protein,Urine Negative (Negative); Specific Gravity,Urine 1.001 (1.001-1.035); Urobilinogen,Urine <2.0 mg/dL (<2.0)
[2022-11-25 03:05] LABS: Amphetamine Screen,Urine Not Detected (NotDetected); Barbiturate Screen,Urine Not Detected (NotDetected); Benzodiazepines Screen,Urine Not Detected (NotDetected); Cocaine Screen,Urine Not Detected (NotDetected); Methadone Screen, Urine Not Detected (NotDetected); Opiate Screen,Urine Not Detected (NotDetected); Oxycodone Screen, Urine Not Detected (NotDetected); Phencyclidine Screen,Urine Not Detected (NotDetected); Tricyclic Antidepressant,Urine Not Detected (NotDetected); Urn Cannabinoid Scrn Not Detected (NotDetected)
[2022-11-25] MEDS ORDERED: LORazepam 2 MG/ML INJ IM STA (03:22)
[2022-11-25] MEDS ORDERED: diphenhydrAMINE 50 MG/ML 1 ML VIAL IM STA (03:22)
[2022-11-25] MEDS ORDERED: HALOPERIDOL LACTATE 5 MG/ML 1 ML VIAL IM STA (03:23)
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
[2022-11-25 18:08] VITALS: BP 102/60; PULSE 68; RESP 18; TEMP 98.2
== END 2022-11-25 18:08 | disposition home or self-care (01) ==
LOC: EC 02:14
DX: F10.129 Alcohol abuse with intoxication, unspecified (principal); J45.909 Unspecified asthma, uncomplicated; F17.200 Nicotine dependence, unspecified, uncomplicated; Z79.899 Other long term (current) drug therapy; Z86.59 Personal history of other mental and behavioral disorders; Z88.0 Allergy status to penicillin; Z91.018 Allergy to other foods; Z88.8 Allergy status to other drugs, medicaments and biological substances
CPT/HCPCS: 82075; 81003; 80306; 99285; 96372 ×3; J2060; J1200; J1630

== ENCOUNTER 2022-12-02 19:20 | Emergency (ER) | payer OTHER ==
[2022-12-02 19:59] VITALS: BP 113/78; PULSE 77; RESP 16; TEMP 98.5
[2022-12-02 20:36] LABS: Basophils % (A) 1 %; Eosinophils # (A) 0.2 k/uL (0-0.7); Eosinophils % (A) 3 %; HCT 50.5 % (39.0-53.0); HGB 17.3 gm/dL (13.0-17.5); Lymphocytes # (A) 1.8 k/uL (1.0-4.8); Lymphocytes % (A) 31 %; MCH 32.2 pg (25.0-35.0); MCHC 34.3 g/dL (31.0-37.0); MCV 93.9 fL (80.0-100.0); Mean Platelet Volume 8.9; Monocytes # (A) 0.4 k/uL (0-1.0); Monocytes % (A) 6 %; Neutrophils # (A) 3.3 k/uL (1.3-7.7); Neutrophils % (A) 57 %; Platelet Count 163 k/uL (150-450); RBC 5.37 m/uL (4.30-5.90); WBC 5.7 k/uL (3.8-10.6)
[2022-12-02 20:47] LABS: ALT 21 U/L (4-49); AST 23 U/L (17-59); African American GFR (CKD) >90 (>60 ml/min/1.73 sqM); Albumin 4.1 g/dL (3.5-5.0); Alkaline Phosphatase 64 U/L (38-126); Amylase 50 U/L (30-110); Anion Gap 7 mmol/L; Blood Urea Nitrogen 14 mg/dL (9-20); Calcium 9.3 mg/dL (8.4-10.2); Carbon Dioxide 26 mmol/L (22-30); Chloride 106 mmol/L (98-107); Glucose 84 mg/dL (74-99); Lipase 121 U/L (23-300); Non-African American GFR(CKD) >90 (>60 ml/min/1.73 sqM); Potassium 4.2 mmol/L (3.5-5.1); Sodium 139 mmol/L (137-145); Total Bilirubin 0.7 mg/dL (0.2-1.3); Total Protein 7.1 g/dL (6.3-8.2)
[2022-12-02 20:52] LABS: INR 1.1 (<1.2); Partial Thromboplastin Time 22.8 sec (22.0-30.0); Prothrombin Time 11.1 sec (9.0-12.0)
[2022-12-02] MEDS ORDERED: SODIUM CHLORIDE 0.9% 1,000 ML IV STA (22:01)
[2022-12-02] MEDS ORDERED: KETOROLAC 15 MG/ML 1 ML VIAL IVP STA (22:01)
[2022-12-02 23:13] LABS: Appearance,Urine Clear (Clear); Bilirubin,Urine Negative (Negative); Blood,Urine Negative (Negative); Color,Urine Light Yellow; Glucose,Urine (UA) Negative (Negative); Ketones,Urine Negative (Negative); Leukocyte Esterase,Urine Negative (Negative); Nitrite,Urine Negative (Negative); PH, Urine 5.5 (5.0-8.0); Protein,Urine Negative (Negative); Specific Gravity,Urine 1.015 (1.001-1.035); Urobilinogen,Urine <2.0 mg/dL (<2.0)
--- NOTE | 2022-12-02 23:35 | CT ---
EXAMINATION TYPE: CT abdomen pelvis w con DATE OF EXAM: 12/02/2022 COMPARISON: 02/04/2022 HISTORY: RLQ PAIN CT DLP: 779.7 mGycm CONTRAST: CT scan of the abdomen and pelvis is performed without Oral Contrast and with IV Contrast, patient in jected with 100 mL of Isovue 300. FINDINGS: LUNG BASES-: No visible nodule. No infiltrate. LIVER/GB: The gallbladder is surgically absent. No space occupying hepatic lesion. Biliary tree is of normal caliber. PANCREAS: No inflammation. No distinct mass. SPLEEN: No splenic enlargement. No lesion seen. ADRENALS: No nodule. No thickening. KIDNEYS/BLADDER: Small area of remote insult upper pole left kidney. No hydronephrosis. No nephroli thiasis. No distinct renal mass. Urinary bladder grossly unremarkable. BOWEL: Normal appendix. Normal bowel caliber. Wall thickening distal ileal loops may reflect enterit is. Correlate clinically. GENITAL ORGANS: No gross abnormality. LYMPH NODES: No greater than 1cm abdominal or pelvic lymph nodes are appreciated. AORTA: No significant abnormality. OSSEOUS STRUCTURES: No significant abnormality is seen. OTHER: No significant additional abnormality is seen. IMPRESSION: 1. Wall thickening distal ileal loops may reflect enteritis. Correlate clinically.
--- NOTE | 2022-12-02 23:42 | ED ---
Abdominal Pain HPI - General Chief Complaint: Abdominal Pain Stated Complaint: Abd pain Time Seen by Provider: 12/02/22 22:01 Source: patient Mode of arrival: ambulatory Limitations: no limitations - History of Present Illness Initial Comments: Patient is a 36-year-old male presents to the emergency department for abdominal pain.It Morning in his right lower abdomen. There is no radiation. Describes the pain as sharp which is worse with standing or laying down. He denies fever, chills, nausea, vomiting, constipation, diarrhea, blood in stool, blood in urine, burning with urination, trouble urinating. - Related Data Previous Rx's Medication Instructions Recorded Ibuprofen [Motrin] 600 mg PO Q8HR PRN #30 tab 12/02/22 Allergies Allergy/AdvReac Type Severity Reaction Status Date / Time [place] And Derivatives Allergy Intermediate Rash/Hives Verified 11/25/22 10:45 Penicillins Allergy Intermediate Rash/Hives Verified 11/25/22 10:45 strawberry [[place]] Allergy Intermediate Rash/Hives Verified 11/25/22 10:45 quetiapine fumarate AdvReac Severe Paralysis, Verified 11/25/22 10:45 [From Seroquel] unable to move. Review of Systems ROS Statement: Those systems with pertinent positive or pertinent negative responses have been documented in the HPI. ROS Other: All systems not noted in ROS Statement are negative. Past Medical History Past Medical History: Asthma, GERD/Reflux Additional Past Medical History / Comment(s): Pt. currently has Dermatitis/rash from allergic reaction to a generic Tide pod laundry soap. History of Any Multi-Drug Resistant Organisms: None Reported Past Surgical History: Cholecystectomy Past Anesthesia/Blood Transfusion Reactions: No Reported Reaction Past Psychological History: Anxiety, Bipolar Smoking Status: Current every day smoker Past Alcohol Use History: Abuse, Daily Past Drug Use History: None Reported - Past Family History Mother Family Medical History: Diabetes Mellitus, Musculoskeletal Disorder, Renal Disease Additional Family Medical History / Comment(s): Stage III Renal Failure and Arthritis and Peripheral Neuropathy. Sister(s) Family Medical History: Seizure Disorder Additional Family Medical History / Comment(s): [facility] and now has Seizure D.O. General Exam Limitations: no limitations General appearance: alert, in no apparent distress Eye exam: Present: normal appearance, PERRL, EOMI. Absent: scleral icterus, conjunctival injection, periorbital swelling Respiratory exam: Present: normal lung sounds bilaterally. Absent: respiratory distress, wheezes, rales, rhonchi, stridor Cardiovascular Exam: Present: regular rate, normal rhythm, normal heart sounds. Absent: systolic murmur, diastolic murmur, rubs, gallop, clicks GI/Abdominal exam: Present: soft, tenderness (mild RLQ ), normal bowel sounds. Absent: distended, guarding, rebound, rigid Neurological exam: Present: alert, oriented X3, CN II-XII intact Psychiatric exam: Present: normal affect, normal mood Skin exam: Present: warm, dry, intact, normal color. Absent: rash Course Vital Signs 12/02/22 19:57 Temperature 98.5 F Pulse Rate 77 Respiratory 16 Rate Blood Pressure 113/78 O2 Sat by Pulse 98 Oximetry Medical Decision Making - Medical Decision Making EKG taken at 20:15, to prevent myself Sinus rhythm Ventricular rate 69, W[place] interval 123, QRS duration 89, QTC 375 Was pt. sent in by a medical professional or institution (, PA, INSTRUCTOR DECORATING, urgent care, hospital, or [facility]...) When possible be specific @ -No Did you speak to anyone other than the patient for history (EMS, parent, family, police, friend...)? What history was obtained from this source @ -No Did you review nursing and triage notes (agree or disagree)? Why? @ -I reviewed and agree with nursing and triage notes Were old charts reviewed (outside hosp., previous admission, EMS record, old EKG, old radiological studies, urgent care reports/EKG's, [facility] records)? Report findings @ -No old charts were reviewed Differential Diagnosis (chest pain, altered mental status, abdominal pain women, abdominal pain men, vaginal bleeding, weakness, fever, dyspnea, syncope, headache, dizziness, GI bleed, back pain, seizure, CVA, palpatations, mental health)? @ -Differential Abdominal Pain Men: Appendicitis, cholecystitis, diverticulosis, ischemic bowel, pancreatitis, hepatitis, UTI, gastroenteritis, AAA, incarcerated hernia, bowel obstruction, co nstipation, inflammatory bowel, hepatitis, peptic ulcer disease, splenic infarction, perforated viscus, testicular torsion, this is not meant to be an all-inclusive list EKG interpreted by me (3pts min.). @ -As above X-rays interpreted by me (1pt min.). @ -None done CT interpreted by me (1pt min.). @ -Wall thickening of the distal ileal loops U/S interpreted by me (1pt. min.). @ -None done What testing was considered but not performed or refused? (CT, X-rays, U/S, labs)? Why? @ -None What meds were considered but not given or refused? Why? @ -None Did you discuss the management of the patient with other professionals (professionals i.e. , PA, INSTRUCTOR DECORATING, lab, RT, psych nurse, social insurance administrator, property officer, teacher, telecommunications officer, assistant case manager)? Give summary @ -No Was smoking cessation discussed for >3mins.? @ -No Was critical care preformed (if so, how long)? @ -No Were there social determinants of health that impacted care today? How? (H omelessness, low income, unemployed, alcoholism, drug addiction, transportation, low edu. Level, literacy, decrease access to med. care, [facility], rehab)? @ -No Was there de-escalation of care discussed even if they declined (Discuss DNR or withdrawal of care, Hospice)? DNR status @ -No What co-morbidities impacted this encounter? (DM, HTN, Smoking, COPD, CAD, Cancer, CVA, ARF, Chemo, Hep., AIDS, mental health diagnosis, sleep apnea, morbid obesity)? @ -None Was patient admitted / discharged? Hospital course, mention meds given and route, prescriptions, significant lab abnormalities, going to OR and other pertinent info. @ -Discharged. CT reflecting enteritis patient has mild pain over vomiting no fever no diarrhea. He is discharged with pain management and return parameters. Undiagnosed new problem with uncertain prognosis? @ -No Drug Therapy requiring intensive monitoring for toxicity (Heparin, Nitro, Insulin, Cardizem)? @ -No] Were any procedures done? @ -[No] Diagnosis/symptom? @ -enteritis Acute, or Chronic, or Acute on Chronic? @ -acute Uncomplicated (without systemic symptoms) or Complicated (systemic symptoms)? @ uncomplicated Side effects of treatment? @ -[No] Exacerbation, Progression, or Severe Exacerbation? @ -[No] Poses a threat to life or bodily function? How? (Chest pain, [place], [place], pneumonia, PE, COPD, DKA, ARF, appy, cholecystitis, CVA, Diverticulitis, Homicidal, Suicidal, threat to staff... and all critical care pts) @ -No Dr. Nava is my attending - Lab Data Result diagrams: 12/02/22 20:20 12/02/22 20:20 Lab Results 12/02/22 12/02/22 12/02/22 Range/Units 20:20 20:20 20:20 WBC 5.7 (3.8-10.6) k/uL RBC 5.37 (4.30-5.90) m/uL Hgb 17.3 (13.0-17.5) gm/dL Hct 50.5 (39.0-53.0) % MCV 93.9 (80.0-100.0) fL MCH 32.2 (25.0-35.0) pg MCHC 34.3 (31.0-37.0) g/dL RDW 13.0 (11.5-15.5) % Plt Count 163 (150-450) k/uL MPV 8.9 Neutrophils % 57 % Lymphocytes % 31 % Monocytes % 6 % Eosinophils % 3 % Basophils % 1 % Neutrophils # 3.3 (1.3-7.7) k/uL Lymphocytes # 1.8 (1.0-4.8) k/uL Monocytes # 0.4 (0-1.0) k/uL Eosinophils # 0.2 (0-0.7) k/uL Basophils # 0.0 (0-0.2) k/uL PT 11.1 (9.0-12.0) sec INR 1.1 (<1.2) APTT 22.8 (22.0-30.0) sec Sodium 139 (137-145) mmol/L Potassium 4.2 (3.5-5.1) mmol/L Chloride 106 (98-107) mmol/L Carbon Dioxide 26 (22-30) mmol/L Anion Gap 7 mmol/L BUN 14 (9-20) mg/dL Creatinine 0.75 (0.66-1.25) mg/dL Est GFR (CKD-EPI)AfAm >90 (>60 ml/min/1.73 sqM) Est GFR (CKD-EPI)NonAf >90 (>60 ml/min/1.73 sqM) Glucose 84 (74-99) mg/dL Calcium 9.3 (8.4-10.2) mg/dL Total Bilirubin 0.7 (0.2-1.3) mg/dL AST 23 (17-59) U/L ALT 21 (4-49) U/L Alkaline Phosphatase 64 (38-126) U/L Total Protein 7.1 (6.3-8.2) g/dL Albumin 4.1 (3.5-5.0) g/dL Amylase 50 (30-110) U/L Lipase 121 (23-300) U/L Urine Color Urine Appearance (Clear) Urine pH (5.0-8.0) Ur Specific [place] (1.001-1.035) Urine Protein (Negative) Urine Glucose (UA) (Negative) Urine Ketones (Negative) Urine Blood (Negative) Urine Nitrite (Negative) Urine Bilirubin (Negative) Urine Urobilinogen (<2.0) mg/dL Ur Leukocyte Esterase (Negative) 12/02/22 Range/Units 22:56 WBC (3.8-10.6) k/uL RBC (4.30-5.90) m/uL Hgb (13.0-17.5) gm/dL Hct (39.0-53.0) % MCV (80.0-100.0) fL MCH (25.0-35.0) pg MCHC (31.0-37.0) g/dL RDW (11.5-15.5) % Plt Count (150-450) k/uL MPV Neutrophils % % Lymphocytes % % Monocytes % % Eosinophils % % Basophils % % Neutrophils # (1.3-7.7) k/uL Lymphocytes # (1.0-4.8) k/uL Monocytes # (0-1.0) k/uL Eosinophils # (0-0.7) k/uL Basophils # (0-0.2) k/uL PT (9.0-12.0) sec INR (<1.2) APTT (22.0-30.0) sec Sodium (137-145) mmol/L Potassium (3.5-5.1) mmol/L Chloride (98-107) mmol/L Carbon Dioxide (22-30) mmol/L Anion Gap mmol/L BUN (9-20) mg/dL Creatinine (0.66-1.25) mg/dL Est GFR (CKD-EPI)AfAm (>60 ml/min/1.73 sqM) Est GFR (CKD-EPI)NonAf (>60 ml/min/1.73 sqM) Glucose (74-99) mg/dL Calcium (8.4-10.2) mg/dL Total Bilirubin (0.2-1.3) mg/dL AST (17-59) U/L ALT (4-49) U/L Alkaline Phosphatase (38-126) U/L Total Protein (6.3-8.2) g/dL Albumin (3.5-5.0) g/dL Amylase (30-110) U/L Lipase (23-300) U/L Urine Color Light Yellow Urine Appearance Clear (Clear) Urine pH 5.5 (5.0-8.0) Ur Specific [place] 1.015 (1.001-1.035) Urine Protein Negative (Negative) Urine Glucose (UA) Negative (Negative) Urine Ketones Negative (Negative) Urine Blood Negative (Negative) Urine Nitrite Negative (Negative) Urine Bilirubin Negative (Negative) Urine Urobilinogen <2.0 (<2.0) mg/dL Ur Leukocyte Esterase Negative (Negative) Disposition Clinical Impression: Enteritis Disposition: HOME SELF-CARE Condition: Good Instructions (If sedation given, give patient instructions): Acute Abdominal Pain (ED) Additional Instructions: Take medication as directed. Please follow-up with your primary care provider in 1-2 days. Return to the emergency department if you experience new, concerning, or worsening symptoms. Prescriptions: Ibuprofen [Motrin] 600 mg PO Q8HR PRN #30 tab PRN Reason: Pain Is patient prescribed a controlled substance at d/c from ED?: No Referrals: Rodney Lara MD [Primary Care Provider] - 1-2 days
== END 2022-12-02 23:58 | disposition home or self-care (01) ==
LOC: EC 19:20
DX: K52.9 Noninfective gastroenteritis and colitis, unspecified (principal); J45.909 Unspecified asthma, uncomplicated; F17.200 Nicotine dependence, unspecified, uncomplicated; Z91.018 Allergy to other foods; Z88.0 Allergy status to penicillin; Z88.8 Allergy status to other drugs, medicaments and biological substances; Z86.59 Personal history of other mental and behavioral disorders
CPT/HCPCS: 36415; 93005; 80053; 82150; 83690; 85025; 85610; 85730; 81003; 74177; 99284; 96374; 96361; J1885

== ENCOUNTER 2023-02-04 16:34 | Emergency (ER) | payer OTHER ==
[2023-02-04 16:38] VITALS: BP 122/83; PULSE 94; RESP 20; TEMP 98.3
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
[2023-02-04] MEDS ORDERED: ACETAMINOPHEN TAB 500 MG TAB PO STA (18:28)
[2023-02-04] MEDS ORDERED: IBUPROFEN 600 MG TAB PO STA (18:29)
== END 2023-02-04 18:55 | disposition home or self-care (01) ==
LOC: EC 16:34
DX: S93.401A Sprain of unspecified ligament of right ankle, initial encounter (principal); J45.909 Unspecified asthma, uncomplicated; F17.200 Nicotine dependence, unspecified, uncomplicated; Z91.018 Allergy to other foods; Z88.0 Allergy status to penicillin; Z88.8 Allergy status to other drugs, medicaments and biological substances; Z86.59 Personal history of other mental and behavioral disorders; Z90.49 Acquired absence of other specified parts of digestive tract; W01.0XXA Fall on same level from slipping, tripping and stumbling without subsequent striking against object, initial encounter
CPT/HCPCS: 99283

== ENCOUNTER 2023-05-03 03:55 | Emergency (ER) | payer OTHER ==
[2023-05-03 04:33] LABS: Basophils # (A) 0.1 k/uL (0-0.2); Basophils % (A) 1 %; Eosinophils # (A) 0.3 k/uL (0-0.7); Eosinophils % (A) 3 %; HCT 50.4 % (39.0-53.0); HGB 18.1 gm/dL (13.0-17.5); Lymphocytes # (A) 3.5 k/uL (1.0-4.8); Lymphocytes % (A) 42 %; MCH 33.9 pg (25.0-35.0); MCHC 35.9 g/dL (31.0-37.0); MCV 94.4 fL (80.0-100.0); Mean Platelet Volume 8.7; Monocytes # (A) 0.4 k/uL (0-1.0); Monocytes % (A) 5 %; Neutrophils % (A) 48 %; Platelet Count 199 k/uL (150-450); RBC 5.33 m/uL (4.30-5.90); RDW 12.4 % (11.5-15.5); WBC 8.4 k/uL (3.8-10.6)
[2023-05-03 04:43] LABS: ALT 42 U/L (4-49); AST 31 U/L (17-59); African American GFR (CKD) >90 (>60 ml/min/1.73 sqM); Albumin 4.6 g/dL (3.5-5.0); Alkaline Phosphatase 75 U/L (38-126); Anion Gap 14 mmol/L; Blood Urea Nitrogen 9 mg/dL (9-20); Calcium 9.2 mg/dL (8.4-10.2); Carbon Dioxide 21 mmol/L (22-30); Chloride 103 mmol/L (98-107); Glucose 98 mg/dL (74-99); Non-African American GFR(CKD) >90 (>60 ml/min/1.73 sqM); Potassium 3.5 mmol/L (3.5-5.1); Sodium 138 mmol/L (137-145); Total Bilirubin 1.2 mg/dL (0.2-1.3); Total Protein 7.7 g/dL (6.3-8.2)
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
[2023-05-03 04:52] LABS: Partial Thromboplastin Time 25.5 sec (22.0-30.0); Prothrombin Time 11.3 sec (10.0-12.5)
[2023-05-03 06:12] VITALS: BP 112/78; PULSE 83; RESP 16
[2023-05-03 06:41] VITALS: TEMP 98.2
--- NOTE | 2023-05-03 07:08 | XR ---
EXAM: XR Chest, 1 View CLINICAL HISTORY: ITS.REASON XR Reason: chest pain TECHNIQUE: Frontal view of the chest. COMPARISON: 02/04/2022 FINDINGS: Lungs: No consolidation. Pleural space: No acute findings. No pneumothorax. Heart: No cardiomegaly. Bones/joints: No acute osseous abnormality. IMPRESSION: No acute cardiopulmonary abnormality.
== END 2023-05-03 06:29 | disposition home or self-care (01) ==
LOC: EC 03:55
DX: R20.2 Paresthesia of skin (principal); F10.129 Alcohol abuse with intoxication, unspecified; J45.909 Unspecified asthma, uncomplicated; F17.200 Nicotine dependence, unspecified, uncomplicated; Z88.0 Allergy status to penicillin; Z91.018 Allergy to other foods; Z88.8 Allergy status to other drugs, medicaments and biological substances
CPT/HCPCS: 36415; 71045; 80053; 84484; 85025; 85610; 85730; 93005; 99285

== ENCOUNTER 2023-07-30 02:23 | Emergency (ER) | payer OTHER ==
--- NOTE | 2023-07-30 02:45 | ED ---
General Adult HPI - General Source: EMS Mode of arrival: EMS <Trav Vinson - Last Filed: 07/30/23 02:45> <Rito Dior - Last Filed: 07/30/23 15:19> - General Chief complaint: Psychiatric Symptoms Stated complaint: Mental Health, ETOH Time Seen by Provider: 07/30/23 02:27 - History of Present Illness Initial comments: 37-year-old male presenting to the ED with a chief complaint of suicidal ideations. 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 Reports that tonight after drinking was going to cut his wrists in order to kill himself. Reports suicide attempt in the past. Denies homicidal ideation. No auditory or visual hallucinations. No chest pain, shortness of breath, abdominal pain, nausea, vomiting, diarrhea, fever, chills, changes in bowel or bladder habits. No other complaints at this time. (Trav Vinson) - Related Data Home Medications Medication Instructions Recorded Confirmed Emtricitabine/Tenofovir (Tdf) 1 tab PO DAILY@0300 07/30/23 07/30/23 [Truvada 200 mg-300 mg Tablet] Melatonin 10 mg PO HS 07/30/23 07/30/23 Allergies Allergy/AdvReac Type Severity Reaction Status Date / Time [place] And Derivatives Allergy Intermediate Rash/Hives Verified 07/30/23 08:00 Penicillins Allergy Intermediate Rash/Hives Verified 07/30/23 08:00 strawberry [[place]] Allergy Intermediate Rash/Hives Verified 07/30/23 08:00 quetiapine fumarate AdvReac Severe Paralysis, Verified 07/30/23 08:00 [From Seroquel] unable to move. Review of Systems ROS Other: All systems not noted in ROS Statement are negative. <Trav Vinson - Last Filed: 07/30/23 02:45> ROS Other: All systems not noted in ROS Statement are negative. <Rito Dior - Last Filed: 07/30/23 15:19> ROS Statement: Those systems with pertinent positive or pertinent negative responses have been documented in the HPI. Past Medical History Past Medical History: Asthma, GERD/Reflux Additional Past Medical History / Comment(s): Pt. currently has Dermatitis/rash from allergic reaction to a generic Tide pod laundry soap. History of Any Multi-Drug Resistant Organisms: None Reported Past Surgical History: Cholecystectomy Past Anesthesia/Blood Transfusion Reactions: No Reported Reaction Past Psychological History: Anxiety, Bipolar Smoking Status: Current every day smoker Past Alcohol Use History: Abuse, Daily Past Drug Use History: None Reported - Past Family History Mother Family Medical History: Diabetes Mellitus, Musculoskeletal Disorder, Renal Disease Additional Family Medical History / Comment(s): Stage III Renal Failure and Arthritis and Peripheral Neuropathy. Sister(s) Family Medical History: Seizure Disorder Additional Family Medical History / Comment(s): [facility] and now has Seizure D.O. <Trav Vinson - Last Filed: 07/30/23 02:45> General Exam General appearance: alert, in no apparent distress, appears intoxicated Eye exam: Present: normal appearance Respiratory exam: Present: normal lung sounds bilaterally Cardiovascular Exam: Present: regular rate, normal rhythm GI/Abdominal exam: Present: soft (No tenderness to palpation. No rebound guarding or rigidity.) Neurological exam: Present: alert, oriented X3 Skin exam: Present: warm, dry <Trav Vinson - Last Filed: 07/30/23 02:45> Course Vital Signs 07/30/23 07/30/23 02:33 10:50 Temperature 98.2 F 98.0 F Pulse Rate 74 77 Respiratory 18 20 Rate Blood Pressure 112/75 110/75 O2 Sat by Pulse 98 98 Oximetry Medical Decision Making <Trav Vinson - Last Filed: 07/30/23 02:45> <Rito Dior - Last Filed: 07/30/23 15:19> - Medical Decision Making Was pt. sent in by a medical professional or institution (, PA, MILL BE[employer], urgent care, hospital, or correction...) When possible be specific @ -No Did you speak to anyone other than the patient for history (EMS, parent, family, police, friend...)? What history was obtained from this source @ -No Did you review nursing and triage notes (agree or disagree)? Why? @ -I reviewed and agree with nursing and triage notes Were old charts reviewed (outside hosp., previous admission, EMS record, old EKG, old radiological studies, urgent care reports/EKG's, correction records)? Report findings @ -No old charts were reviewed Differential Diagnosis (chest pain, altered mental status, abdominal pain women, abdominal pain men, vaginal bleeding, weakness, fever, dyspnea, syncope, headache, dizziness, GI bleed, back pain, seizure, CVA, palpatations, mental health, musculoskeletal)? @ -Differential Mental Health Depression, anxiety, bipolar, psychosis, schizophrenia, borderline personality, situational depression, adjustment disorder, behavioral disorder, brain tumor, malingering, substance abuse, encephalopathy, medication reaction, dementia, hypothyroidism, degenerative neurologic disorder, lupus.... This is not meant to be all-inclusive list EKG interpreted by me (3pts min.). @ -None X-rays interpreted by me (1pt min.). @ -None done CT interpreted by me (1pt min.). @ -None done U/S interpreted by me (1pt. min.). @ -None done What testing was considered but not performed or refused? (CT, X-rays, U/S, labs)? Why? @ -None What meds were considered but not given or refused? Why? @ -None Did you discuss the management of the patient with other professionals (professionals i.e. , PA, M[employer], lab, RT, psych nurse, social media strategist, coal tower operator, teacher, multisensor intelligence officer, test case developer)? Give summary @ -No Was smoking cessation discussed for >3mins.? @ -No Was critical care preformed (if so, how long)? @ -No Were there social determinants of health that impacted care today? How? (Homelessness, low income, unemployed, alcoholism, drug addiction, transportation, low edu. Level, literacy, decrease access to med. care, shelter, rehab)? @ -No Was there de-escalation of care discussed even if they declined (Discuss DNR or withdrawal of care, Hospice)? DNR status @ -No What co-morbidities impacted this encounter? (DM, HTN, Smoking, COPD, CAD, Cancer, CVA, ARF, Chemo, Hep., AIDS, mental health diagnosis, sleep apnea, morbid obesity)? @ -None Was patient admitted / discharged? Hospital course, mention meds given and rou te, prescriptions, significant lab abnormalities, going to OR and other pertinent info. @ -Pending 57-year-old male presented to the ED with a chief complaint of psychiatric evaluation. At this time has no medical complaints other than alcohol intoxication. At this time alcohol is Disposition pending psychiatric evaluation in the morning. (Trav Vinson) Patient signed out to me pending results of psychiatric evaluation. EPS evaluated the patient and determined that the patient does not meet inpatient criteria. He will be discharged home at this time with a safety plan. On diagnosis/symptom? @ -Suicidal ideation, encounter for psychiatric evaluation, intoxication Acute, or Chronic, or Acute on Chronic? @ -Acute Uncomplicated (without systemic symptoms) or Complicated (systemic symptoms)? @ -Complicated Side effects of treatment? @ -None Exacerbation, Progression, or Severe Exacerbation] @ -No Poses a threat to life or bodily function? @ -Unlikely (Rito Dior) - Lab Data Lab Results 07/30/23 Range/Units 02:51 Urine Opiates Screen Not Detected (NotDetected) Ur Oxycodone Screen Not Detected (NotDetected) Urine Methadone Screen Not Detected (NotDetected) Ur Barbiturates Screen Not Detected (NotDetected) U Tricyclic Antidepress Not Detected (NotDetected) Ur Phencyclidine Scrn Not Detected (NotDetected) Ur Amphetamines Screen Not Detected (NotDetected) U Methamphetamines Scrn Not Detected (NotDetected) U Benzodiazepines Scrn Not Detected (NotDetected) Urine Cocaine Screen Not Detected (NotDetected) U Marijuana (THC) Screen Not Detected (NotDetected) Disposition <Trav Vinson - Last Filed: 07/30/23 02:45> Is patient prescribed a controlled substance at d/c from ED?: No Time of Disposition: 10:05 <Rito Dior - Last Filed: 07/30/23 15:19> Clinical Impression: Encounter for psychiatric assessment, Alcohol intoxication Disposition: HOME SELF-CARE Condition: Good Additional Instructions: follow safety plan Referrals: Rodney Lara MD [Primary Care Provider] - 1-2 days
[2023-07-30 03:22] LABS: Amphetamine Screen,Urine Not Detected (NotDetected); Barbiturate Screen,Urine Not Detected (NotDetected); Benzodiazepines Screen,Urine Not Detected (NotDetected); Cocaine Screen,Urine Not Detected (NotDetected); Methadone Screen, Urine Not Detected (NotDetected); Opiate Screen,Urine Not Detected (NotDetected); Oxycodone Screen, Urine Not Detected (NotDetected); Phencyclidine Screen,Urine Not Detected (NotDetected); Tricyclic Antidepressant,Urine Not Detected (NotDetected); Urn Cannabinoid Scrn Not Detected (NotDetected)
[2023-07-30 11:08] VITALS: BP 110/75; PULSE 77; RESP 20; TEMP 98
== END 2023-07-30 10:50 | disposition home or self-care (01) ==
LOC: EC 02:23
DX: F10.129 Alcohol abuse with intoxication, unspecified (principal); Z04.6 Encounter for general psychiatric examination, requested by authority; J45.909 Unspecified asthma, uncomplicated; F17.200 Nicotine dependence, unspecified, uncomplicated; Z86.59 Personal history of other mental and behavioral disorders; Z88.0 Allergy status to penicillin; Z91.018 Allergy to other foods; Z88.8 Allergy status to other drugs, medicaments and biological substances
CPT/HCPCS: 80306; 82075; 99285

== ENCOUNTER → 2024-03-21 | Outpatient (CLI) | payer OTHER ==
[2024-03-21 15:02] LABS: Basophils # (A) 0.06 X 10*3/uL (0.00-0.10); Basophils % (A) 0.9 %; Eosinophils # (A) 0.11 X 10*3/uL (0.04-0.35); Eosinophils % (A) 1.7 %; HCT 47.8 % (39.6-50.0); HGB 16.3 g/dL (13.0-17.0); Lymphocytes # (A) 2.04 X 10*3/uL (0.90-5.00); Lymphocytes % (A) 30.9 %; MCH 31.5 pg (27.0-32.0); MCHC 34.1 g/dL (32.0-37.0); MCV 92.3 FL (80.0-97.0); Mean Platelet Volume 11.4 FL (9.5-12.2); Monocytes # (A) 0.49 X 10*3/uL (0.20-1.00); Monocytes % (A) 7.4 %; NRBC Per 100 WBC 0 X 10*3/uL (0.00-0.01); Neutrophils % (A) 58.9 %; Platelet Count 169 X 10*3/uL (140-440); RBC 5.18 X 10*6/uL (4.40-5.60); RDW 12.7 % (11.5-14.5); WBC 6.61 X 10*3/uL (4.50-10.00)
[2024-03-21 15:31] LABS: ALT 56 U/L (10-49); AST 29 U/L (14-35); Albumin 4.3 g/dL (3.8-4.9); Albumin/Globulin Ratio 1.87 Ratio (1.60-3.17); Alkaline Phosphatase 86 U/L (41-126); BUN/Creat Ratio 13.75 Ratio (12.00-20.00); Calcium 9.1 mg/dL (8.7-10.3); Carbon Dioxide 26.2 mmol/L (21.6-31.8); Chloride 105 mmol/L (96-109); Globulin 2.3 g/dL (1.6-3.3); Glucose 87 mg/dL (70-110); Potassium 4.4 mmol/L (3.5-5.5); Sodium 141 mmol/L (135-145); Total Bilirubin 0.5 mg/dL (0.3-1.2); Total Protein 6.6 g/dL (6.2-8.2)
[2024-03-21 16:43] LABS: HIV 2 AB Non-Reactive (Non-Reactive); HIV AB P24 Non-Reactive (Non-Reactive); HIV P24 AG Non-Reactive (Non-Reactive)
== END | disposition home or self-care (01) ==
LOC: LABWHC1 09:51
PROVIDERS: ATTEND Internal Medicine Infectious Disease
DX: Z20.2 Contact with and (suspected) exposure to infections with a predominantly sexual mode of transmission (principal)
CPT/HCPCS: 36415; 80053; 85025; 87390

== ENCOUNTER 2024-06-13 05:42 | Emergency (ER) | payer OTHER ==
[2024-06-13 05:48] VITALS: BP 107/74; PULSE 75; RESP 18; TEMP 98.3
--- NOTE | 2024-06-13 06:08 | ED ---
Chest Pain HPI - General Source: patient, EMS, RN notes reviewed Mode of arrival: EMS Limitations: no limitations <Cherelle Kimball - Last Filed: 06/13/24 06:23> <Pavan Dunaway - Last Filed: 06/13/24 08:29> - General Chief Complaint: Chest Pain Stated Complaint: Chest pain, ETOH Time Seen by Provider: 06/13/24 06:06 - History of Present Illness Initial Comments: 38-year-old male presented to ER for evaluation of chest discomfort. Patient states around 3 AM he started to experiencing a compression chest discomfort. He also states his right arm was numb at that time. Right arm numbness has since resolved. Chest discomfort has continued. He admits to mild shortness of breath but denies dizziness, lightheadedness, nausea or vomiting. Patient does admit to drinking 10-15 beers last night due to the [employer] game. His last drink was around 2 AM. Patient states chest discomfort started when he took his Tr uvada medication. He does admit to history of ME when he was 18 years old. He states this was stress-induced. No other complaints. (Cherelle Kimball) This is a 38-year-old male who came into the emergency room for chest discomfort earlier in the day I went over some in the waiting room at approximately 8:00 patient was variably actually yelling at me I just tried to ask him why he was here he did say chest pain but he did not want to stay he did want to give any information and he was demanding to leave. Patient was however intoxicated and I told him he could leave as soon as he got family to come pick him up. Patient states family is on the way. Patient refused to give me any other information at this time. (Pavan Dunaway) - Related Data Home Medications Medication Instructions Recorded Confirmed Emtricitabine/Tenofovir (Tdf) 1 tab PO DAILY@0300 07/30/23 07/30/23 [Truvada 200 mg-300 mg Tablet] Melatonin 10 mg PO HS 07/30/23 07/30/23 Allergies Allergy/AdvReac Type Severity Reaction Status Date / Time [place] And Derivatives Allergy Intermediate Rash/Hives Verified 06/13/24 05:48 Penicillins Allergy Intermediate Rash/Hives Verified 06/13/24 05:48 strawberry [[place]] Allergy Intermediate Rash/Hives Verified 06/13/24 05:48 quetiapine fumarate AdvReac Severe Paralysis, Verified 06/13/24 05:48 [From Seroquel] unable to move. Review of Systems ROS Other: All systems not noted in ROS Statement are negative. <Cherelle Kimball - Last Filed: 06/13/24 06:23> ROS Other: All systems not noted in ROS Statement are negative. <Pavan Dunaway - Last Filed: 06/13/24 08:29> ROS Statement: Those systems with pertinent positive or pertinent negative responses have been documented in the HPI. EKG Findings - EKG Comments: EKG Findings:: EKG taken at 6: 19 showing a sinus rhythm. Early repolarization in inferior leads. No T wave abnormalities. Ventricular rate 61, AL interval 130, QRS duration 98, QT/QTc 376/380 <Cherelle Kmiball - Last Filed: 06/13/24 06:23> Past Medical History Past Medical History: Asthma, GERD/Reflux Additional Past Medical History / Comment(s): Pt. currently has Dermatitis/rash from allergic reaction to a generic Tide pod laundry soap. History of Any Multi-Drug Resistant Organisms: None Reported Past Surgical History: Cholecystectomy Past Anesthesia/Blood Transfusion Reactions: No Reported Reaction Past Psychological History: Anxiety, Bipolar Smoking Status: Current every day smoker Past Alcohol Use History: Abuse, Daily Past Drug Use History: None Reported - Past Family History Mother Family Medical History: Diabetes Mellitus, Musculoskeletal Disorder, Renal Disease Additional Family Medical History / Comment(s): Stage III Renal Failure and Arthritis and Peripheral Neuropathy. Sister(s) Family Medical History: Seizure Disorder Additional Family Medical History / Comment(s): [facility] and now has Seizure D.O. <Cherelle Kimball - Last Filed: 06/13/24 06:23> General Exam Limitations: no limitations <Cherelle Kimball - Last Filed: 06/13/24 06:23> <Pavan Dunaway - Last Filed: 06/13/24 08:29> - General Exam Comments Initial Comments: GENERAL: Patient is well-developed and well-nourished. Patient is nontoxic and well- hydrated and is in no acute distress. Patient was of noxious and refused to answer questions. Argumentative but does not appear in any distress SKIN: Skin is clear with no lesions or rashes and otherwise unremarkable. NEUROLOGIC: Patient is alert and oriented x3. Cranial nerves II through XII are grossly intact. MUSCULOSKELETAL: Patient's upper extremities had full range of motion I could not assess the lower because he was in the chair and he would not get up. LYMPHATICS: No significant lymphadenopathy is noted PSYCHIATRIC: Patient was very upset and obnoxious yelling and swearing in the waiting room and would not answer any more questions with difficult to ascertain. (Pavan Dunaway) Course Vital Signs 06/13/24 05:43 Temperature 98.3 F Pulse Rate 75 Respiratory 18 Rate Blood Pressure 107/74 O2 Sat by Pulse 98 Oximetry Chest Pain MDM <Pavan Dunaway - Last Filed: 06/13/24 08:29> - [facility] EKG is interpreted by myself. EKG shows a sinus rhythm at 61 bpm AL interval 130 QRS is 98 QT interval is 376 QTc is 380. Patient's EKG shows some ST segment elevation in 2 and aVF. Patient also has ST segment elevation in leads V3, V4, V5 and V6 Was pt. sent in by a medical professional or institution ([facility], [employer], urgent care, hospital, or senior living...) When possible be specific @ -No Did you speak to anyone other than the patient for history (EMS, parent, family, police, friend...)? What history was obtained from this source @ -No Did you review nursing and triage notes (agree or disagree)? Why? @ -I reviewed and agree with nursing and triage notes Were old charts reviewed (outside hosp., previous admission, EMS record, old EKG, old radiological studies, urgent care reports/EKG's, senior living records)? Report findings @ -No old charts were reviewed Differential Diagnosis? @ -Differential Chest Pain: Stable Angina, Unstable Angina, STEMI, NSTEMI Aortic Dissection, Pneumothorax, Musculoskeletal, Esophageal Spasm GERD, Cholecystitis, Pancreatitis, Zoster, thi s is not meant to be an all-inclusive list. EKG interpreted by me (3pts min.). @ -As above X-rays interpreted by me (1pt min.). @ -None done CT interpreted by me (1pt min.). @ -None done U/S interpreted by me (1pt. min.). @ -None done What testing was considered but not performed or refused? (CT, X-rays, U/S, labs)? Why? @ -None What meds were considered but not given or refused? Why? @ -None Did you discuss the management of the patient with other professionals (professionals i.e. , PA, [employer], lab, RT, psych nurse, social services coordinator, engineering mechanic, teacher, licensing officer, pillowcase sewer)? Give summary @ -No Was smoking cessation discussed for >3mins.? @ -No Was critical care preformed (if so, how long)? @ -No Were there social determinants of health that impacted care today? How? (Homelessness, low income, unemployed, alcoholism, drug addiction, transportation, low edu. Level, literacy, decrease access to med. care, [facility], rehab)? @ -No Was there de-escalation of care discussed even if they declined (Discuss DNR or withdrawal of care, Hospice)? DNR status @ -No What co-morbidities impacted this encounter? (DM, HTN, Smoking, COPD, CAD, Cancer, CVA, ARF, Chemo, Hep., AIDS, mental health diagnosis, sleep apnea, morbid obesity)? @ -None Was patient admitted / discharged? Hospital course, mention meds given and route, prescriptions, significant lab abnormalities, going to OR and other pertinent info. @ -Patient was very of noxious and demanding when I saw him in the waiting room he refused to give me any further history he refused to stay was stating that he wanted to leave immediately and did not care about his chest pain he would follow-up with his primary medical care doctor. Patient's EKG showed some ST segment elevation I told the patient that I did not feel comfortable letting him go with that EKG but he insisted and so patient's family are on the way to take him per the patient and when they get there he is going to leave AMA Undiagnosed new problem with uncertain prognosis? @ -No Drug Therapy requiring intensive monitoring for toxicity (Heparin, Nitro, Insulin, Cardizem)? @ -No Were any procedures done? @ -No Diagnosis/symptom? @ -Chest pain Acute, or Chronic, or Acute on Chronic? @ -Acute Uncomplicated (without systemic symptoms) or Complicated (systemic symptoms)? @ -Complicated Side effects of treatment? @ -No Exacerbation, Progression, or Severe Exacerbation? @ -No Poses a threat to life or bodily function? How? (Chest pain, [place], ME, pneumonia, PE, COPD, DKA, ARF, appy, cholecystitis, CVA, Diverticulitis, Homicidal, Suicidal, threat to staff... and all critical care pts) @ -Yes this could lead to an ME and endorgan dysfunction (Pavan Dunaway) Disposition <Cherelle Kimball - Last Filed: 06/13/24 06:23> Time of Disposition: 08:29 <Pavan Dunaway - Last Filed: 06/13/24 08:29> Clinical Impression: Chest pain Disposition: LEFT AGAINST MEDICAL ADVICE Referrals: None,Stated [Primary Care Provider] - 1-2 days
[2024-06-13 06:42] LABS: Basophils # (A) 0.1 k/uL (0-0.2); Basophils % (A) 1 %; Eosinophils # (A) 0.2 k/uL (0-0.7); Eosinophils % (A) 2 %; HCT 50.4 % (39.0-53.0); HGB 17.4 gm/dL (13.0-17.5); Lymphocytes # (A) 2.9 k/uL (1.0-4.8); Lymphocytes % (A) 40 %; MCH 31.8 pg (25.0-35.0); MCHC 34.6 g/dL (31.0-37.0); Mean Platelet Volume 8.6; Monocytes # (A) 0.3 k/uL (0-1.0); Monocytes % (A) 4 %; Neutrophils # (A) 3.8 k/uL (1.3-7.7); Neutrophils % (A) 52 %; Platelet Count 193 k/uL (150-450); RBC 5.48 m/uL (4.30-5.90); RDW 12.8 % (11.5-15.5); WBC 7.3 k/uL (3.8-10.6)
--- NOTE | 2024-06-13 06:47 | XR ---
EXAM: XR Chest, 2 Views CLINICAL HISTORY: ITS.REASON XR Reason: Chest Pain TECHNIQUE: Frontal and lateral views of the chest. COMPARISON: No relevant prior studies available. FINDINGS: Lungs: Unremarkable. No consolidation. Pleural space: Unremarkable. No pneumothorax. Heart: Unremarkable. No cardiomegaly. Mediastinum: Unremarkable. Normal mediastinal contour. Bones/joints: Unremarkable. No acute fracture. IMPRESSION: Normal chest x-rays.
[2024-06-13 06:58] LABS: ALT 41 U/L (4-49); AST 54 U/L (17-59); African American GFR (CKD) >90 (>60 ml/min/1.73 sqM); Albumin 4.9 g/dL (3.5-5.0); Alkaline Phosphatase 83 U/L (38-126); Anion Gap 14 mmol/L; Blood Urea Nitrogen 11 mg/dL (9-20); Calcium 9.4 mg/dL (8.4-10.2); Carbon Dioxide 19 mmol/L (22-30); Chloride 106 mmol/L (98-107); Glucose 87 mg/dL (74-99); Magnesium 2.5 mg/dL (1.6-2.3); Non-African American GFR(CKD) >90 (>60 ml/min/1.73 sqM); Potassium 4.4 mmol/L (3.5-5.1); Sodium 139 mmol/L (137-145); Total Bilirubin 0.5 mg/dL (0.2-1.3)
[2024-06-13 06:59] LABS: Partial Thromboplastin Time 23.5 sec (22.0-30.0); Prothrombin Time 11.1 sec (10.0-12.5)
[2024-06-13 07:14] LABS: Alcohol 205 mg/dL
[2024-06-13] MEDS ORDERED: SODIUM CHLORIDE 0.9% 1,000 ML IV STA (07:16)
== END 2024-06-13 09:01 | disposition left against medical advice (07) ==
LOC: EC 05:42
DX: R07.9 Chest pain, unspecified (principal); F17.200 Nicotine dependence, unspecified, uncomplicated; Z91.018 Allergy to other foods; Z88.0 Allergy status to penicillin; Z88.8 Allergy status to other drugs, medicaments and biological substances; Z53.29 Procedure and treatment not carried out because of patient's decision for other reasons
CPT/HCPCS: 36415; 93005; 80053; 83735; 84484; 85025; 85610; 85730; 71046; 99285; G0480; 80320

== ENCOUNTER 2024-07-05 06:07 | Emergency (ER) | payer OTHER ==
[2024-07-05 06:23] VITALS: RESP 18; TEMP 98.3
--- NOTE | 2024-07-05 06:44 | ED ---
Male Urogenital HPI - General Chief complaint: Urogenital Stated complaint: Urogenital Time Seen by Provider: 07/05/24 06:25 Source: patient, RN notes reviewed Mode of arrival: ambulatory Limitations: no limitations - History of Present Illness Initial comments: 38-year-old male presents emergency department with chief complaint of dysuria. Patient states he has urinary frequency, urgency to urinate. He states there is a foul odor when he urinates. Patient states he is in monogamous relationship does not have any history of STDs. Patient denies any fevers or chills denies any nausea vomit diarrhea constipation. - Related Data Home Medications Medication Instructions Recorded Confirmed Emtricitabine/Tenofovir (Tdf) 1 tab PO DAILY@0300 07/30/23 07/30/23 [Truvada 200 mg-300 mg Tablet] Melatonin 10 mg PO HS 07/30/23 07/30/23 Previous Rx's Medication Instructions Recorded Doxycycline [Vibramycin] 100 mg PO BID #20 capsule 07/05/24 Phenazopyridine [Pyridium] 200 mg PO TID #6 tablet 07/05/24 Allergies Allergy/AdvReac Type Severity Reaction Status Date / Time [place] And Derivatives Allergy Intermediate Rash/Hives Verified 07/05/24 06:23 Penicillins Allergy Intermediate Rash/Hives Verified 07/05/24 06:23 strawberry [[place]] Allergy Intermediate Rash/Hives Verified 07/05/24 06:23 quetiapine fumarate AdvReac Severe Paralysis, Verified 07/05/24 06:23 [From Seroquel] unable to move. Review of Systems ROS Statement: Those systems with pertinent positive or pertinent negative responses have been documented in the HPI. ROS Other: All systems not noted in ROS Statement are negative. Past Medical History Past Medical History: Asthma, GERD/Reflux Additional Past Medical History / Comment(s): Pt. currently has Dermatitis/rash from allergic reaction to a generic Tide pod laundry soap. History of Any Multi-Drug Resistant Organisms: None Reported Past Surgical History: Cholecystectomy Past Anesthesia/Blood Transfusion Reactions: No Reported Reaction Past Psychological History: Anxiety, Bipolar Smoking Status: Current every day smoker Past Alcohol Use History: Abuse, Daily Past Drug Use History: None Reported - Past Family History Mother Family Medical History: Diabetes Mellitus, Musculoskeletal Disorder, Renal Disease Additional Family Medical History / Comment(s): Stage III Renal Failure and Arthritis and Peripheral Neuropathy. Sister(s) Family Medical History: Seizure Disorder Additional Family Medical History / Comment(s): CHI and now has Seizure D.O. General Exam Limitations: no limitations General appearance: alert, in no apparent distress Head exam: Present: atraumatic, normocephalic, normal inspection Eye exam: Present: normal appearance, PERRL, EOMI. Absent: scleral icterus, conjunctival injection, periorbital swelling Respiratory exam: Present: normal lung sounds bilaterally. Absent: respiratory distress, wheezes, rales, rhonchi, stridor Cardiovascular Exam: Present: regular rate, normal rhythm, normal heart sounds. Absent: systolic murmur, diastolic murmur, rubs, gallop, clicks GI/Abdominal exam: Present: soft, normal bowel sounds. Absent: distended, tenderness, guarding, rebound, rigid exam: Present: normal inspection Neurological exam: Present: alert Course Vital Signs 07/05/24 07/05/24 06:15 07:11 Temperature 98.3 F Pulse Rate 74 70 Respiratory 18 18 Rate Blood Pressure 115/79 114/92 O2 Sat by Pulse 98 100 Oximetry Medical Decision Making - Medical Decision Making Was pt. sent in by a medical professional or institution (, PA, IN[employer], urgent care, hospital, or shelter...) When possible be specific @ -No Did you speak to anyone other than the patient for history (EMS, parent, family, police, friend...)? What history was obtained from this source @ -No Did you review nursing and triage notes (agree or disagree)? Why? @ -I reviewed and agree with nursing and triage notes Were old charts reviewed (outside hosp., previous admission, EMS record, old EKG, old radiological studies, urgent care reports/EKG's, shelter records)? Report findings @ -No old charts were reviewed Differential Diagnosis (chest pain, altered mental status, abdominal pain women, abdominal pain men, vaginal bleeding, weakness, fever, dyspnea, syncope, heada eleazar, dizziness, GI bleed, back pain, seizure, CVA, palpatations, mental health, musculoskeletal)? @ -. Dysuria, UTI, STD EKG interpreted by me (3pts min.). @ -None X-rays interpreted by me (1pt min.). @ -None done CT interpreted by me (1pt min.). @ -None done U/S interpreted by me (1pt. min.). @ -None done What testing was considered but not performed or refused? (CT, X-rays, U/S, labs)? Why? @ -None What meds were considered but not given or refused? Why? @ -None Did you discuss the management of the patient with other professionals (professionals i.e. DrAmi, PA, IN[employer], lab, RT, psych nurse, social contact worker, laboratory technical specialist, teacher, court collections officer, block and case maker)? Give summary @ -No Was smoking cessation discussed for >3mins.? @ -No Was critical care preformed (if so, how long)? @ -No Were there social determinants of health that impacted care today? How? (Homelessness, low income, unemployed, alcoholism, drug addiction, transportation, low edu. Level, literacy, decrease access to med. care, nursing home, rehab)? @ -No Was there de-escalation of care discussed even if they declined (Discuss DNR or withdrawal of care, Hospice)? DNR status @ -No What co-morbidities impacted this encounter? (DM, HTN, Smoking, COPD, CAD, Cancer, CVA, ARF, Chemo, Hep., AIDS, mental health diagnosis, sleep apnea, morbid obesity)? @ -None Was patient admitted / discharged? Hospital course, mention meds given and route, prescriptions, significant lab abnormalities, going to OR and other pertinent info. @ -Charge patient has no evidence of UTI patient is a complaint of dysuria possible STD will was given Rocephin discharged on doxycycline. Undiagnosed new problem with uncertain prognosis? @ -No Drug Therapy requiring intensive monitoring for toxicity (Heparin, Nitro, Insulin, Cardizem)? @ -No Were any procedures done? @ -No Diagnosis/symptom? @ -Dysuria Acute, or Chronic, or Acute on Chronic? @ -Acute Uncomplicated (without systemic symptoms) or Complicated (systemic symptoms)? @ -Uncomplicated Side effects of treatment? @ -No Exacerbation, Progression, or Severe Exacerbation? @ -No Poses a threat to life or bodily function? How? (Chest pain, [place], [place], pneumonia, PE, COPD, DKA, ARF, appy, cholecystitis, CVA, Diverticulitis, Homicidal, Suicidal, threat to staff... and all critical care pts) @ -No - Lab Data Lab Results 07/05/24 07/05/24 Range/Units 06:30 06:30 Urine Color Colorless Urine Appearance Clear (Clear) Urine pH 5.5 (5.0-8.0) Ur Specific [place] 1.001 (1.001-1.035) Urine Protein Negative (Negative) Urine Glucose (UA) Negative (Negative) Urine Ketones Negative (Negative) Urine Blood Negative (Negative) Urine Nitrite Negative (Negative) Urine Bilirubin Negative (Negative) Urine Urobilinogen <2.0 (<2.0) mg/dL Ur Leukocyte Esterase Negative (Negative) Chlamydia DNA (PCR) Negative (Negative) N.gonorrhoeae DNA Probe Negative (Negative) Disposition Clinical Impression: Dysuria, UTI (urinary tract infection) Disposition: HOME SELF-CARE Condition: Stable Instructions (If sedation given, give patient instructions): Urinary Tract Infection in Men (ED) Additional Instructions: Please return to the Emergency Department if symptoms worsen or any other concerns. Prescriptions: Phenazopyridine [Pyridium] 200 mg PO TID #6 tablet Doxycycline [Vibramycin] 100 mg PO BID #20 capsule Is patient prescribed a controlled substance at d/c from ED?: No Referrals: Osiel Cross [Primary Care Provider] - 1-2 days Ino Killian MD [STAFF PHYSICIAN] - 1-2 days Time of Disposition: 06:56
[2024-07-05 06:49] LABS: Appearance,Urine Clear (Clear); Bilirubin,Urine Negative (Negative); Blood,Urine Negative (Negative); Color,Urine Colorless; Glucose,Urine (UA) Negative (Negative); Ketones,Urine Negative (Negative); Leukocyte Esterase,Urine Negative (Negative); Nitrite,Urine Negative (Negative); PH, Urine 5.5 (5.0-8.0); Protein,Urine Negative (Negative); Specific Gravity,Urine 1.001 (1.001-1.035); Urobilinogen,Urine <2.0 mg/dL (<2.0)
[2024-07-05] MEDS: cefTRIAXone 1,000 MG VIAL (IM USE) IM STA (07:08)
[2024-07-05 07:12] VITALS: BP 114/92; PULSE 70
[2024-07-07 12:29] LABS: C. trachomatis,PCR Negative (Negative)
[2024-07-07 12:41] LABS: N. gonorrhoeae,PCR Negative (Negative)
== END 2024-07-05 07:17 | disposition home or self-care (01) ==
LOC: EC 06:07
DX: R30.0 Dysuria (principal); N39.0 Urinary tract infection, site not specified; F17.200 Nicotine dependence, unspecified, uncomplicated; Z91.018 Allergy to other foods; Z88.0 Allergy status to penicillin; Z88.8 Allergy status to other drugs, medicaments and biological substances
CPT/HCPCS: 81003; 87491; 87591; 99283; 96372; J0696